=== PATIENT | female | born 1935 | race Caucasian/White ===

== ENCOUNTER → 2016-03-25 | Outpatient (CLI) | payer OTHER ==
[~2016-03-25] MED LIST: ALENDRONATE SOD70 MG PO; AMLODIPINE BESY10 MG PO; ASPIR 8181 MG PO; BENEFIBER1 EAC1 PO; CEFDINIR300 MG PO; CLOBETASOL EMOL15 GM TOP; COMBIVENT RESPIM4 GM IH; COREG3.125 MG PO; ELIDEL CREAM 1%30 G1 TOP; GLIPIZIDE 10 MG10 MG PO; GLUCOTROL5 MG PO; K-DUR 20 MEQ T20 MEQ PO; LASIX 40 MG TAB40 MG PO; LOVASTATIN 20 M20 MG PO; MIRALAX17 GM PO; PREDNISONE 20 M20 MG PO; PROTONIX40 M1 PO; VITAMIN D1000 UNI1 PO; ZESTRIL40 MG PO
[2016-03-25 17:09] LABS: HEMATOCRIT 35.2 % (37.0-47.0); HEMOGLOBIN 11.6 gm/dL (12.0-15.0); MCH 31.1 pg (26.0-34.0); PLATELET COUNT 215 thou/uL (150-400); RBC 3.74 mil/uL (4.20-5.00); WBC 11.7 thou/uL (4.0-11.0)
[2016-03-25 17:28] LABS: MANUAL DIFF YES
[2016-03-25 17:44] LABS: ABSOLUTE NEUTROPHILS 11.3 thou/uL (1.4-8.2); TOTAL CELL COUNT 100
[2016-03-25 17:52] LABS: CREATININE 1.5 mg/dL (0.6-1.3); POTASSIUM 4.7 mmol/L (3.5-5.1)
[2016-03-25 17:53] LABS: ALBUMIN 2.7 g/dL (3.4-5.0); CALCIUM 8.8 mg/dL (8.5-10.1); TOTAL BILIRUBIN 0.6 mg/dL (<0.1-1.0); TOTAL PROTEIN 6.1 g/dL (6.4-8.2)
== END ==
LOC: RAD 15:53
PROVIDERS: Internal Medicine Pulmonary Disease
DX: R06.02 Shortness of breath (principal); R91.8 Other nonspecific abnormal finding of lung field

== ENCOUNTER 2016-06-16 19:47 | Observation (INO) | payer OTHER ==
[~2016-06-16] VITALS: Ht 157.5 cm; Wt 80.6 kg
--- NOTE | ~2016-06-16 | EKG ---
[place] [address] [place] [address] ELECTROCARDIOGRAM REPORT Name: MAGALY BOWIE Room #: 423-1 [facility]..#: [id number] Admission: 06/16/16 Attend Phys: Odette Cheung Discharge: Date of : 34 Report #: [id number] THIS REPORT FOR: //name// [facility] ED Test Date: 2016-06-16 Test Time: 20:39:15 Pat Name: MAGALY BOWIE Department: Room: [facility] Gender: F Director Of Enrollment: [id number] : 1935 Requested By: Migue Perkins Order Number: [id number] MD: Michi Travis Measurements Intervals [place] Rate: 92 P: 51 [place]: 190 QRS: -27 QRSD: 110 T: 132 QT: 368 QTc: 456 Interpretive Statements Sinus rhythm LVH with IVCD and secondary repol abnrm No previous ECG available for comparison Electronically Signed On 06-17-2016 7:58:50 CDT by Michi Travis [email or web address] <ELECTRONICALLY SIGNED> By: Michi Travis MD, [facility] 06/17/16 0758 2038 38 Michi Travis MD, FACC /EPI
[2016-06-16 19:47] VITALS: BP 136/69
[2016-06-16 20:13] LABS: HEMOGLOBIN 10.9 gm/dL (12.0-15.0); MCH 31.6 pg (26.0-34.0); MCHC 34.2 g/dL (28.0-37.0); MCV 92.3 fL (80.0-100.0); PLATELET COUNT 183 thou/uL (150-400); RBC 3.46 mil/uL (4.20-5.00); RDW 14.3 % (10.5-14.5); WBC 11.1 thou/uL (4.0-11.0)
[2016-06-16 20:17] LABS: MANUAL DIFF YES
[2016-06-16 20:24] LABS: CREATININE 1.4 mg/dL (0.6-1.0); POTASSIUM 4.4 mmol/L (3.5-5.1)
[2016-06-16 20:29] LABS: ALBUMIN 3.2 g/dL (3.4-5.0); TOTAL BILIRUBIN 0.6 mg/dL (<0.1-1.0); TOTAL PROTEIN 6.2 g/dL (6.4-8.2)
[2016-06-16 20:41] LABS: ABSOLUTE NEUTROPHILS 10.4 thou/uL (1.4-8.2); ANISOCYTOSIS 2+; METAMYELOCYTES 1 %; MICROCYTES 1+; MYELOCYTES 1 %; TOTAL CELL COUNT 100
[2016-06-16 21:31] LABS: URINE BILIRUBIN NEGATIVE (Negative); URINE BLOOD NEGATIVE (Negative); URINE COLOR YELLOW; URINE GLUCOSE-RANDOM* NEGATIVE (Negative); URINE KETONES NEGATIVE (Negative); URINE LEUKOCYTES-REFLEX TRACE (Negative); URINE PROTEIN (DIPSTICK) NEGATIVE (Negative); URINE UROBILINOGEN 0.2 E.U./dl (0.2-1.0)
[2016-06-16 23:36] VITALS: BP 108/53
[2016-06-17] VITALS: BP 119/56
[2016-06-17 04:00] VITALS: BP 111/55
[2016-06-17 05:31] LABS: HEMATOCRIT 27.3 % (37.0-47.0); HEMOGLOBIN 9.2 gm/dL (12.0-15.0); MCH 31.5 pg (26.0-34.0); MCHC 33.5 g/dL (28.0-37.0); MCV 93.9 fL (80.0-100.0); RBC 2.91 mil/uL (4.20-5.00); RDW 14.2 % (10.5-14.5); WBC 6.7 thou/uL (4.0-11.0)
[2016-06-17 06:08] LABS: ALBUMIN 2.4 g/dL (3.4-5.0); ALKALINE PHOSPHATASE 39 U/L (46-116); ANION GAP 6 mmol/L (7-16); BUN 37 mg/dL (7-18); CALCIUM 7.7 mg/dL (8.5-10.1); CHLORIDE 104 mmol/L (98-107); CO2 29 mmol/L (21-32); CREATININE 1.3 mg/dL (0.6-1.0); GLUCOSE 125 mg/dL (74-106); POTASSIUM 3.8 mmol/L (3.5-5.1); SGOT 18 U/L (15-37); SGPT 22 U/L (30-65); SODIUM 139 mmol/L (136-145); TOTAL BILIRUBIN 0.5 mg/dL (<0.1-1.0); TOTAL PROTEIN 4.9 g/dL (6.4-8.2); TROPONIN-I < 0.04 ng/mL (<0.04-0.07)
[2016-06-17 08:16] VITALS: BP 115/46
[2016-06-17 14:19] VITALS: BP 115/46
== END 2016-06-17 15:49 | disposition home or self-care (01) ==
LOC: ER 19:47 → EROBS 22:32 → 4E 22:32 → EROBS 22:33 → 4E 23:38
PROVIDERS: Emergency Medicine; Nurse Practitioner
DX: R53.1 Weakness (principal); J84.9 Interstitial pulmonary disease, unspecified; J96.11 Chronic respiratory failure with hypoxia; K85.90 Acute pancreatitis without necrosis or infection, unspecified; E11.9 Type 2 diabetes mellitus without complications; I10 Essential (primary) hypertension; E78.5 Hyperlipidemia, unspecified; I82.4Z9 Acute embolism and thrombosis of unspecified deep veins of unspecified distal lower extremity; R06.02 Shortness of breath; R11.2 Nausea with vomiting, unspecified

== ENCOUNTER 2016-06-29 12:35 | Inpatient (IN) | payer OTHER ==
[~2016-06-29] VITALS: Ht 157.5 cm; Wt 76.7 kg
--- NOTE | ~2016-06-29 | H ---
[facility] [place] [address] HISTORY AND PHYSICAL Name: MAGALY BOWIE Room #: 407-P ADM IN .R.#: [id number] Admission: 06/29/16 Attend Phys: Pia Palafox MD Discharge: Date of : 34 Report #: [id number] THIS REPORT FOR: //name// CC: Tonia Palafox DATE OF SERVICE: 06/29/2016 PRIMARY CARE DOCTOR: Pollo Garcia MD CHIEF COMPLAINT: Left hip pain. HISTORY OF PRESENT ILLNESS: The patient is a morbidly obese 80-year-old female with a history of chronic respiratory failure on 2-4 liters of home O2, followed by Dr. Yanez, presented to the ER secondary to left hip and sciatica pain. She was recently here 6 days ago for the same and given prescription for Hartley and sent home. She followed up with ____, an orthopedic surgeon and received a steroid injection today but has had increasing pain. She came in here and received some fentanyl with some relief. She is concerned about going home with a trial stronger oral pain medication. She does not want ____ placement but wants her pain under control before she leaves. The patient was recently hospitalized for gastroenteritis. PAST MEDICAL HISTORY: Chronic respiratory failure, on 2-4 liters of home O2; secondary pulmonary fibrosis, diabetes, cataracts, hypertension and lupus. PAST SURGICAL HISTORY: She has had cataract surgery. SOCIAL HISTORY: Does not smoke or drink. She lives alone with a daughter who lives close by. CURRENT MEDICATIONS: Hartley 5/325, Januvia 100 daily, CellCept 1000 mg b.i.d., prednisone 15 mg daily, Combivent q.i.d., Norvasc 10 daily, aspirin 81 daily, Coreg 3.125 b.i.d., vitamin D 1000 units daily, clobetasol topically, Zestril 40 daily, Mevacor 20 daily, Protonix 40 daily, Elidel cream, and MiraLax 17 grams daily. ALLERGIES: GLUCOSAMINE CHONDROITIN CAUSES SEVERE RASH AND UNABLE TO VOID AND RELAFEN CAUSES THE SAME. REVIEW OF SYSTEMS: The patient was recently hospitalized for GI issues. PHYSICAL EXAMINATION: VITAL SIGNS: Temperature of 97, pulse 78, blood pressure 131/58, and O2 sat 99% [address] [address] HISTORY AND PHYSICAL Name: MAGALY BOWIE Room #: [address] [place] [address] IN .R.#: [id number] Admission: 06/29/16 Attend Phys: Pia Palafox MD Discharge: Date of : 34 Report #: [id number] on 3 liters. GENERAL: She is awake, alert, answering questions appropriately, in no acute respiratory distress. HEENT: Normocephalic, atraumatic. Pupils are equal. NECK: Supple. CARDIOVASCULAR: Regular rate and rhythm. No murmurs. LUNGS: Clear to auscultation bilaterally. No crackles or wheezes. ABDOMEN: Soft and obese. No distention or tenderness. EXTREMITIES: No edema. NEUROLOGIC: Nonfocal. LABS AND TESTING: CBC: White count 11.5, H and H of 9 and 29, MCV 92, iron is 91, TIBC is 237, ____. Sodium 133, potassium 4.2, BUN and creatinine are 39 and 1.2. LFTs are negative. Albumin 3.1. UA is negative. X-ray of the hip done 6 days ago was negative. ASSESSMENT AND PLAN: 1. Intractable left hip pain. We will get ortho to see her, put her on some Percocet and see if that alleviates the pain until her current cortisol injection kicks in. We will get PT to see her as well. 2. Chronic kidney disease stage 3, overall appears to be stable. 3. Chronic anemia. This also is stable. Continue Protonix. Check occult and iron indices. 4. Diabetes. Continue home meds and sliding scale insulin. 5. Chronic respiratory failure secondary to interstitial lung disease. Continue her DuoNebs and her home meds. I do not see any indications to consult Pulmonary at this time, although she is requesting it. 6. Hypertension. Continue the same. 7. Dyslipidemia. Continue the same. 8. Morbid obesity. The patient would benefit from outpatient weight loss. 9. Deep venous thrombosis prophylaxis with SCDs. By: 1534 1737 My Suzan Palafox MD /nt
[~2016-06-29 12:35] MED LIST changes: +HYDROCODONE-APA1 TA1 PO
[2016-06-29 12:40] VITALS: BP 148/52
[2016-06-29] MEDS ORDERED: JANUVIA100 MG PO (12:52)
[2016-06-29] MEDS ORDERED: CELLCEPT500 MG PO (12:52)
[2016-06-29] MEDS ORDERED: NORCO 5-325 TA1 EACH PO (12:53)
[2016-06-29] MEDS ORDERED: BENIFIBER (12:55)
[2016-06-29 13:14] LABS: HEMOGLOBIN 9.9 gm/dL (12.0-15.0); MCH 31.7 pg (26.0-34.0); MCHC 34.3 g/dL (28.0-37.0); MCV 92.3 fL (80.0-100.0); PLATELET COUNT 213 thou/uL (150-400); RBC 3.14 mil/uL (4.20-5.00); WBC 11.5 thou/uL (4.0-11.0)
[2016-06-29 13:16] LABS: MANUAL DIFF YES
[2016-06-29 13:23] LABS: URINE BILIRUBIN NEGATIVE (Negative); URINE BLOOD NEGATIVE (Negative); URINE COLOR YELLOW; URINE GLUCOSE-RANDOM* NEGATIVE (Negative); URINE KETONES NEGATIVE (Negative); URINE NITRITE NEGATIVE (Negative); URINE PROTEIN (DIPSTICK) NEGATIVE (Negative); URINE UROBILINOGEN 0.2 E.U./dl (0.2-1.0)
[2016-06-29 13:25] LABS: CALCIUM 8.8 mg/dL (8.5-10.1); CREATININE 1.2 mg/dL (0.6-1.0); POTASSIUM 4.2 mmol/L (3.5-5.1)
[2016-06-29 13:29] LABS: ALBUMIN 3.1 g/dL (3.4-5.0); TOTAL BILIRUBIN 0.5 mg/dL (<0.1-1.0)
[2016-06-29 13:37] LABS: ABSOLUTE NEUTROPHILS 10.5 thou/uL (1.4-8.2); TOTAL CELL COUNT 100
[2016-06-29 14:30] VITALS: BP 131/58
[2016-06-29 15:16] LABS: % SATURATION 38 % (20-39); IRON 91 ug/dL (50-170); TIBC 237 ug/dL (250-450); UIBC 146 ug/dL
[2016-06-29 19:31] VITALS: BP 117/53
[2016-06-29 23:50] VITALS: BP 114/56
[2016-06-30 03:39] VITALS: BP 133/62
[2016-06-30 05:44] LABS: HEMATOCRIT 29.3 % (37.0-47.0); HEMOGLOBIN 10.2 gm/dL (12.0-15.0); MCH 31.5 pg (26.0-34.0); MCHC 34.7 g/dL (28.0-37.0); PLATELET COUNT 212 thou/uL (150-400); RBC 3.22 mil/uL (4.20-5.00); WBC 8.4 thou/uL (4.0-11.0)
[2016-06-30 05:46] LABS: MANUAL DIFF YES
[2016-06-30 06:02] LABS: CALCIUM 9.1 mg/dL (8.5-10.1); CREATININE 1.2 mg/dL (0.6-1.0); POTASSIUM 4.3 mmol/L (3.5-5.1)
[2016-06-30 07:05] LABS: ABSOLUTE NEUTROPHILS 7.6 thou/uL (1.4-8.2); ANISOCYTOSIS SLIGHT; OVALOCYTES FEW; TOTAL CELL COUNT 100
[2016-06-30 15:40] VITALS: BP 113/49
[2016-06-30 19:55] VITALS: BP 125/54
[2016-07-01 03:52] VITALS: BP 131/59
[2016-07-01 07:36] VITALS: BP 118/58
[2016-07-01 15:43] VITALS: BP 114/56
[2016-07-01 19:40] VITALS: BP 101/54
[2016-07-02 05:40] VITALS: BP 148/70
[2016-07-02] MEDS ORDERED: PERCOCET 7.5-31 EACH PO (08:57)
[2016-07-02 09:20] VITALS: BP 150/50
== END 2016-07-02 13:25 | DRG 552 ==
LOC: ER 12:35 → EROBS 13:47 → 4N 13:47
PROVIDERS: Family Medicine; Nurse Practitioner Family
DX: S32.10XA Unspecified fracture of sacrum, initial encounter for closed fracture (principal); J96.10 Chronic respiratory failure, unspecified whether with hypoxia or hypercapnia; E87.1 Hypo-osmolality and hyponatremia; M54.16 Radiculopathy, lumbar region; J84.10 Pulmonary fibrosis, unspecified; L93.0 Discoid lupus erythematosus; E11.22 Type 2 diabetes mellitus with diabetic chronic kidney disease; I12.9 Hypertensive chronic kidney disease with stage 1 through stage 4 chronic kidney disease, or unspecified chronic kidney disease; N18.3 Chronic kidney disease, stage 3 (moderate); E66.01 Morbid (severe) obesity due to excess calories; E78.5 Hyperlipidemia, unspecified; D64.9 Anemia, unspecified; Z88.8 Allergy status to other drugs, medicaments and biological substances; Z68.30 Body mass index [BMI] 30.0-30.9, adult; Z98.41 Cataract extraction status, right eye; Z98.42 Cataract extraction status, left eye; Z99.81 Dependence on supplemental oxygen
CPT/HCPCS: 10091

== ENCOUNTER 2016-08-17 01:05 | Emergency (ER) | payer OTHER ==
[~2016-08-17] VITALS: Ht 157.5 cm; Wt 76.7 kg
[~2016-08-17 01:05] MED LIST changes: +BENIFIBER; +CELLCEPT500 MG PO; +JANUVIA100 MG PO; +NORCO 5-325 TA1 EACH PO; +PERCOCET 7.5-31 EACH PO
[2016-08-17 01:44] LABS: HEMATOCRIT 31.9 % (37.0-47.0); HEMOGLOBIN 10.7 gm/dL (12.0-15.0); MCH 30.5 pg (26.0-34.0); MCHC 33.5 g/dL (28.0-37.0); MCV 91.1 fL (80.0-100.0); PLATELET COUNT 186 thou/uL (150-400); RDW 13.4 % (10.5-14.5); WBC 12.7 thou/uL (4.0-11.0)
[2016-08-17 01:45] LABS: MANUAL DIFF YES
[2016-08-17 01:50] LABS: CALCIUM 8.1 mg/dL (8.5-10.1); POTASSIUM 3.3 mmol/L (3.5-5.1)
[2016-08-17 02:27] LABS: ABSOLUTE NEUTROPHILS 12.6 thou/uL (1.4-8.2); TOTAL CELL COUNT 100
[2016-08-17] MEDS ORDERED: COLACE100 MG PO (02:44)
[2016-08-17] MEDS ORDERED: LASIX 40 MG TAB40 M2 PO (02:45)
[2016-08-17] MEDS ORDERED: JANUVIA100 MG PO (02:46)
== END 2016-08-17 03:06 ==
LOC: ER 01:05
PROVIDERS: Emergency Medicine
DX: E11.649 Type 2 diabetes mellitus with hypoglycemia without coma (principal); R19.7 Diarrhea, unspecified; I12.9 Hypertensive chronic kidney disease with stage 1 through stage 4 chronic kidney disease, or unspecified chronic kidney disease; E11.22 Type 2 diabetes mellitus with diabetic chronic kidney disease; N18.3 Chronic kidney disease, stage 3 (moderate); E11.40 Type 2 diabetes mellitus with diabetic neuropathy, unspecified; K64.9 Unspecified hemorrhoids; E78.5 Hyperlipidemia, unspecified; Z86.2 Personal history of diseases of the blood and blood-forming organs and certain disorders involving the immune mechanism; Z88.8 Allergy status to other drugs, medicaments and biological substances; Z99.81 Dependence on supplemental oxygen

== ENCOUNTER 2016-08-18 10:28 | Inpatient (IN) | payer OTHER ==
[~2016-08-18] VITALS: Ht 157.5 cm; Wt 73.6 kg
--- NOTE | ~2016-08-18 | S ---
[facility] [place] [address] SURGICAL PATH RPT PROCEDURE Name: MAGALY BOWIE Room #: 443-P ADM IN M.R.#: [id number] Admission: 08/18/16 Date of : 34 Discharge: Report #: [id number] Path Case #: [id number] PATHOLOGY REPORT COLLECTION DATE: 08/25/2016 RECEIVED DATE: 08/25/2016 SUBMITTING PHYS: Dr. Ming Monsivais OTHER PHYS: Dr. Jerry Upton SPECIMEN(S) RECEIVED: A.Gallbladder * * * * * * * * * * * * FINAL DIAGNOSIS: "Gallbladder", cholecystectomy: - Chronic cholecystitis. - Cholelithiasis. (CLW:valentine; d/t: 08/27/2016) PATHOLOGIST: Charmaine Pierson M.D. REPORT ELECTRONICALLY SIGNED BY: Charmaine Pierson M.D. DATE/TIME: 08/27/2016 16:04 * * * * * * * * * * * * GROSS PATHOLOGY: Received in formalin labeled "Magaly Bowie, gallbladder," is a 4.9 x 2.8 x 1.6 cm, previously opened gallbladder with yellow-green and wrinkled serosal surfaces. Opening the gallbladder reveals green and velvety mucosa and an average wall thickness of 0.1 cm. Calculi are present, dark green, friable and ranging in size from 0.1 to 0.5 cm in maximum dimensions. No masses are noted grossly. Stock Checkerer sections from the body and fundus are submitted along with the proximal margin in cassette A1. (MARCY; 08/26/2016) CLINICAL HISTORY: Cholelithiasis with biliary pancreatitis INITIAL CPT CODE(S): A; 50911 Professional services performed by [facility] at [facility] [address] , [place], [place] [address] [place] [address] [place] [address] SURGICAL PATH RPT PROCEDURE Name: MAGALY BOWIE Room #: 443-P [facility] IN [facility].#: [id number] Admission: 08/18/16 Date of : 34 Discharge: Report #: [id number] Path Case #: [id number] Technical services performed by [facility] at [address] [place] [address], [facility] [address] [address]. [place] [address] PHONE: [phone] DIRECTOR: Heriberto Hernandez M.D. * * * END OF REPORT * * *
--- NOTE | ~2016-08-18 | HC ---
[facility] [place] [address] CONSULTATION Name: MAGALY BOWIE Room #: 246-P [facility] IN ..#: [id number] Admission: 08/18/16 Attend Phys: Jerry Mcdowell MD Discharge: Date of : 34 Report #: [id number] THIS REPORT FOR: //name// CC: Jerry Walker DATE OF SERVICE: 08/23/2016 DATE OF CONSULTATION: 08/23/2016. DATE OF DICTATION: 08/25/2016. HISTORY OF PRESENT ILLNESS: I have been asked to evaluate this 80-year-old lady with severe chronic lung disease, who presented to the Emergency Department with a chief complaint of abdominal pain. The patient's abdominal pain has been intermittent at most in her upper abdomen. She has some constipation ongoing manner, she has been recently hospitalized at [facility] in [place], [place] since June for recovery from pneumonitis and pneumonia. The patient denies any previous gastrointestinal disease. The pain has been associated with nausea with abdominal pain, distention has been ongoing for approximately 1 week. PAST MEDICAL HISTORY: Consistent with msg-przjhho-yzxrfcgyt diabetes mellitus, pulmonary fibrosis, hypertension, lupus pneumonitis, chronic O2 use at home 2-4 liters per nasal cannula, chronic kidney disease, dyslipidemia, anemia, neuropathy, and cortisone injection, congestive heart failure. PAST SURGICAL HISTORY: Cataract surgery, hemorrhoidectomy. She denies abdominal surgery. MEDICATIONS: At the time of hospital patient were Percocet, glipizide, albuterol, prednisone 15 mg daily, Colace, Lasix 40 mg daily, Januvia, 81 mg aspirin daily, Coreg daily, cholecalciferol, clobetasol , lisinopril, Mevacor, Protonix and MiraLax. ALLERGIES: CHONDROITIN, SULFATE, GLUCOSAMINE, RELAFEN. SOCIAL HISTORY: Denies cigarette smoking and no history of alcohol use. REVIEW OF SYSTEMS: A 10-review of systems, recent change has been in gastrointestinal function with abdominal pain, nausea without vomiting and worsening constipation and obstipation. PHYSICAL EXAMINATION: GENERAL: Reveals a patient who is daughters are at the bedside. She is alert, cooperative and nasal cannula in place for O2 delivery. [address] [address] CONSULTATION Name: MAGALY BOWIE Room #: 246-P [facility] IN M.R.#: [id number] Admission: 08/18/16 Attend Phys: Jerry Mcdowell MD Discharge: Date of : 34 Report #: [id number] HEENT: No scleral icterus is noted. NECK: Supple, no bruits. LUNGS: Clear at the bases bilaterally. CARDIOVASCULAR: Regular rate and rhythm. ABDOMEN: Nondistended, obese, mild tenderness in right upper quadrant. No masses palpable. RECTAL: Not performed. NEUROLOGIC: She is oriented x 3, bilateral motor symmetry. LABORATORY DATA: Demonstrates an ultrasound with cholelithiasis. Lipase level and now has returned to normal. Other liver function tests are within normal limits. DIAGNOSTIC IMPRESSION: Biliary pancreatitis secondary to cholelithiasis. I would recommend laparoscopic cholecystectomy and operative cholangiogram if Pulmonary and Cardiology services can clear the patient preoperatively for anesthesia. Thank you for allowing us to participate in her care. <ELECTRONICALLY SIGNED> By: Ming Monsivais MD, FACS 08/25/16 1800 1239 1301 Ming Monsivais MD, FACS /nt
--- NOTE | ~2016-08-18 | HC ---
[facility] [place] [address] CONSULTATION Name: MAGALY BOWIE Room #: 443-P [facility].#: [id number] Admission: 08/18/16 Attend Phys: Jerry Mcdowell MD Discharge: 08/27/16 Date of : 34 Report #: [id number] THIS REPORT FOR: //name// CC: Jerry [facility]zh [facility] DATE OF SERVICE: 08/26/2016 HISTORY OF PRESENT ILLNESS: The patient is an 80-year-old white female who has been on skilled damico at [facility], was admitted with abdominal pain. She was diagnosed with cholecystitis with cholelithiasis and underwent a laparoscopic cholecystectomy on 08/25/2016. She also was diagnosed with a urinary tract infection, Proteus as well as chronic respiratory failure, for which she is on chronic O2. We are seeing her in rehabilitation medicine consultation. She is currently in the intensive care unit. PAST MEDICAL HISTORY: Includes neuropathy, jyh-qiuhhls-qwqkuraxr diabetes mellitus, pulmonary fibrosis with chronic O2 use 2-4 liters and obesity. She has history of chronic kidney disease stage 3 and CHF. MEDICATIONS: Please see the full medication listing. SOCIAL HISTORY: She notes that she lives in a house by herself, was on her oxygen. She is wanting to go back home, but had been at the shelter facility. DICTATION ENDS HERE. <ELECTRONICALLY SIGNED> By: Sanjeev Barboza MD 08/31/16 1825 1340 1432 Sanjeev Barboza, /nt
--- NOTE | ~2016-08-18 | EKG ---
[address] [place] [address] ELECTROCARDIOGRAM REPORT Name: MAGALY BOWIE Room #: 447-P ADM IN M.R.#: [id number] Admission: 08/18/16 Attend Phys: Odette Cheung Discharge: Date of : 34 Report #: [id number] THIS REPORT FOR: //name// [facility] ED Test Date: 2016-08-18 Test Time: 11:18:36 Pat Name: MAGALY BOWIE Department: Room: [facility] Gender: F Porcelain Waxer: LOAN : 1935 Requested By: Jus Early Order Number: [id number] MD: Michi Travis Measurements Intervals [place] Rate: 97 P: 25 ID: [id number] QRS: -32 QRSD: 98 T: 111 QT: 357 QTc: 454 Interpretive Statements Sinus rhythm Atrial premature complex Probable left atrial enlargement Abnormal R-wave progression, late transition LVH with secondary repolarization abnormality Compared to ECG 06/16/2016 20:39:15 Atrial premature complex(es) now present Electronically Signed On 08-19-2016 8:48:20 CDT by Michi Travis [email or web address] <ELECTRONICALLY SIGNED> By: Michi Travis MD, [facility] 08/19/16 0848 1118 1118 Michi Travis MD, [facility] /EPI
--- NOTE | ~2016-08-18 | HC ---
[facility] [place] [address] CONSULTATION Name: MAGALY BOWIE Room #: 443-P [facility].#: [id number] Admission: 08/18/16 Attend Phys: Jerry Mcdowell MD Discharge: 08/27/16 Date of : 34 Report #: [id number] THIS REPORT FOR: //name// CC: Won Walker PULMONARY CONSULTATION REFERRAL PHYSICIAN: Odette Cheung M.D. REASON FOR REFERRAL: Pulmonary fibrosis, preoperative pulmonary evaluation. HISTORY OF PRESENT ILLNESS: The patient is an 80-year-old white female who was admitted with abdominal pain. She was found to have biliary pancreatitis. She is scheduled to undergo surgery tomorrow. A pulmonary consultation is requested. The patient has history of interstitial lung disease and history of pulmonary fibrosis. She has been followed longitudinally by Dr. Yanez. The cause of the interstitial lung disease is unclear to this physician at this time. Review of the past records from 2015 suggests possible nonspecific interstitial pneumonitis or other interstitial pneumonias. Currently, she denies any dyspnea. Denies any productive cough, night sweats or chills. PAST MEDICAL HISTORY: Notable for diabetes mellitus type 2; interstitial lung disease/pulmonary fibrosis, etiology unknown, as mentioned above; hypertension; history of lupus with an apparent lupus pneumonitis; chronic hypoxic respiratory failure, on 2-4 liters of O2; chronic kidney disease; dyslipidemia; anemia; neuropathy; COPD and sacral stress fracture. PAST SURGICAL HISTORY: Includes cataract surgery. ALLERGIES: CHONDROITIN which causes severe rash, GLUCOSAMINE and RELAFEN causes severe rash. MEDICATIONS: Current medication list reviewed in the MAR. FAMILY HISTORY: Noncontributory. SOCIAL HISTORY: She denies any tobacco or alcohol use. She resides in a fci. REVIEW OF SYSTEMS: As mentioned above, otherwise 10-point system review negative. [facility] [address] [place] [address] CONSULTATION Name: MAGALY BOWIE Room #: 443-P [facility] IN [facility]#: [id number] Admission: 08/18/16 Attend Phys: Jerry Mcdowell MD Discharge: 08/27/16 Date of : 34 Report #: [id number] PHYSICAL EXAMINATION: GENERAL: On examination, she is awake, alert, in no apparent distress. VITAL SIGNS: Temperature is 98 degrees Fahrenheit, pulse is 100, respiratory rate is 20, blood pressure is 148/72 mmHg and saturation 100%. HEENT: Normocephalic, atraumatic. NECK: Supple, without any lymphadenopathy or thyromegaly. CHEST: Breath sounds are fair, with few scattered crackles in the bases. No wheezes. ABDOMEN: Mildly tender, but without rebound tenderness. No masses felt. GENITOURINARY: Deferred. RECTAL: Deferred. EXTREMITIES: No cyanosis, clubbing or edema. LABORATORY DATA: Sodium 133, potassium 3.7, chloride 99, CO2 of 27, BUN is 4 and creatinine is 1.0. Liver function test is grossly unremarkable. Hemoglobin is 10.4, WBC is 10,300 and platelets are normal. Albumin is 2.3. IMPRESSION: 1. Gallstone pancreatitis, surgery is scheduled for tomorrow. 2. History of interstitial lung disease, pulmonary fibrosis, etiology undetermined. 3. Chronic hypoxic respiratory failure, on supplemental O2. 4. Urinary tract infection. 5. Hypertension. 6. Diabetes mellitus type 2. RECOMMENDATION AND DISCUSSION: The patient appears to be stable from pulmonary standpoint to proceed with surgery. She has avlv-ad-idifktam risk of postop hypoxia and respiratory complications. I think it is reasonable to proceed with anticipated surgery. DVT and GI prophylaxis recommended. Thank you for this consultation. <ELECTRONICALLY SIGNED> By: James Leiva MD 08/28/16 1600 1707 0017 James Leiva MD /nt
--- NOTE | ~2016-08-18 | EKG ---
[address] [place] [employer] [place] [address] ELECTROCARDIOGRAM REPORT Name: MAGALY BOWIE Consuelo Room #: 447-P ADM IN M.R.#: [id number] Admission: 08/18/16 Attend Phys: Won Cuevas MD Discharge: Date of : 34 Report #: [id number] THIS REPORT FOR: //name// [facility] Test Date: 2016-08-24 Test Time: 12:47:52 Pat Name: MAGALY BOWIE Department: Room: 447 P Gender: F Qa Software Tester: Abdifatah LOERA : 1935 Requested By: Yvonne Harris Order Number: [id number] MD: Jose Schofield Measurements Intervals [place] Rate: 92 P: 42 FL: 175 QRS: -33 QRSD: 99 T: 115 QT: 368 QTc: 456 Interpretive Statements Sinus rhythm Atrial premature complex Abnormal R-wave progression, late transition LVH with secondary repolarization abnormality Compared to ECG 08/18/2016 11:18:36 No significant changes Electronically Signed On 08-24-2016 13:00:32 CDT by Jose Schofield [email or web address] <ELECTRONICALLY SIGNED> By: Jose Schofield MD 08/24/16 1300 1247 124 Jose Schofield MD /EPI
--- NOTE | ~2016-08-18 | S ---
[facility] [place] [address] SURGICAL PATH RPT PROCEDURE Name: MAGALY BOWIE Room #: 246-P ADM IN M.R.#: [id number] Admission: 08/18/16 Date of : 34 Discharge: Report #: [id number] Path Case #: [id number] PATHOLOGY REPORT COLLECTION DATE: 08/24/2016 RECEIVED DATE: 08/25/2016 SUBMITTING PHYS: Dr. Esau Guo OTHER PHYS: Dr. Mason Walker SPECIMEN(S) RECEIVED: A.Bx of duodenum B.Bx of gastritis C.Bx of random colon * * * * * * * * * * * * FINAL DIAGNOSIS: A. Small bowel mucosa, "duodenum", endoscopic biopsy: - Mild active peptic duodenitis. - Negative for villus blunting or increase in intraepithelial lymphocytes. B. Gastric mucosa, "gastritis", endoscopic biopsy: - Mild active gastritis. - No evidence of intestinal metaplasia or atrophy. - No Helicobacter pylori identified, see comment. C. Large intestine mucosa, "random colon", endoscopic biopsy: - Mild focal active colitis, see comment. - No evidence of dysplasia or malignancy. COMMENT: Part B: Helicobacter pylori immunohistochemical stain performed on block B1- negative An intensive search for Helicobacter pylori-like organisms is negative. Absence of such organisms does not entirely exclude the possibility and may be due to sampling or prior treatment. Other possible etiologies may include chemical gastritis, autoimmune gastritis, gastritis associated with inflammatory bowel disease. Please correlate with clinical, endoscopic, and microbiological studies if clinically indicated. Part C: Sections of colon biopsy tissues show focal active cryptitis, crypts at regular intervals with a mild increase in the cellularity of lamina propria. There are no granulomata or viral inclusions. The collagen layer underneath the epithelium is not thickened. There is no increase in the intraepithelial lymphocytes. There is no distortion in crypt architecture as well. There is no evidence of dysplasia. Findings may be suggestive of mild focal active colitis due to a self-limited episode of colitis, bowel preparation, [address] [address] SURGICAL PATH RPT PROCEDURE Name: MAGALY BOWIE Consuelo Room #: 246-P [facility] IN [facility]#: [id number] Admission: 08/18/16 Date of : 34 Discharge: Report #: [id number] Path Case #: [id number] medication induced colitis or diverticulitis. Please correlate clinically. PATHOLOGIST: Berenice Ray M.D. REPORT ELECTRONICALLY SIGNED BY: Berenice Ray M.D. DATE/TIME: 08/26/2016 15:45 * * * * * * * * * * * * GROSS PATHOLOGY: A. Received in formalin labeled "Magaly Bowie, biopsy of duodenum," are three segments of orellana soft tissue measuring 0.8 x 0.7 x 0.1 cm in aggregate dimensions and ranging from 0.1 to 0.4 cm in maximum dimension. The specimen is submitted entirely in cassette A1. B. Received in formalin labeled "Magaly Bowie, biopsy of gastritis," are three segments of orellana soft tissue measuring 1.0 x 0.8 x 0.2 cm in aggregate dimensions and ranging from 0.2 to 0.5 cm in maximum dimension. The specimen is submitted entirely in cassette B1. C. Received in formalin labeled "Magaly Bowie, biopsy random colon," are two segments of orellana soft tissue measuring 0.5 x 0.5 x 0.1 cm in aggregate dimensions and ranging from 0.4 to 0.5 cm in maximum dimension. The specimen is submitted entirely in cassette C1. (CAA; 08/25/2016) CLINICAL HISTORY: Pre-op diagnosis: History of diarrhea, heme + stool, anemia Post-op diagnosis: Gastritis, diverticulosis INITIAL CPT CODE(S): A; 19484 B; 67385, 89566 C; 70039 Professional services performed by [facility] at [place] [address] [address], [place] [address] Technical services performed by [facility] at [address] [place] [address], [address], [place] [address]. [facility] [place] [address] PHONE: [phone] DIRECTOR: Heriberto Hernandez M.D. * * * END OF REPORT * * *
--- NOTE | ~2016-08-18 | P ---
[facility] [place] [address] PROCEDURE REPORT Name: MAGALY BOWIE Room #: 443-P [facility] IN ..#: [id number] Admission: 08/18/16 Attend Phys: Jerry Mcdowell MD Discharge: Date of : 34 Report #: [id number] THIS REPORT FOR: //name// CC: Ming Walker DATE OF SERVICE: 08/24/2016 PROCEDURE PERFORMED: Colonoscopy with biopsies. HISTORY OF PRESENT ILLNESS: The patient is an 80-year-old female with recent diarrhea, nausea, Hemoccult positive stool, anemia, and plan is for colonoscopy. DESCRIPTION OF PROCEDURE: The risks and benefits of the procedure were explained to the patient, those risks including but not limited to bleeding, perforation, the risk of sedation. She understood these risks and gave informed consent. Sedation was given using propofol per anesthesia. Next, a digital rectal exam was initially performed, which is normal other than small external hemorrhoids, nonbleeding. Next, using a standard Fujinon colonoscope, the scope was placed in the patient's anus and advanced under direct vision to the cecum. The overall prep was good. Cecum and ileocecal valve were normal in appearance. A few scattered diverticula were noted in the ascending colon, no evidence of inflammation, otherwise normal. Transverse and descending colon were normal. Multiple diverticula were noted in the sigmoid colon, no evidence of inflammation, otherwise normal. The rectal mucosa was normal. On retroflexion, small nonbleeding internal hemorrhoids were noted, otherwise normal colonoscopy. The scope was then withdrawn and the procedure terminated. The patient tolerated the procedure well. Random biopsies were obtained to rule out microscopic colitis. IMPRESSION: 1. Diverticulosis, mild involving the ascending colon, multiple involving sigmoid colon, no evidence of inflammation. 2. Internal and external hemorrhoids, nonbleeding. 3. Otherwise, normal colonoscopy. RECOMMENDATIONS: 1. Await biopsy results. 2. Continue probiotics. 3. Plan is for laparoscopic cholecystectomy tomorrow. [address] [address] PROCEDURE REPORT Name: AZEBMAGALY L Room #: 443-P [facility] IN ..#: [id number] Admission: 08/18/16 Attend Phys: Jerry Mcdowell MD Discharge: Date of : 34 Report #: [id number] Thank you for allowing me to participate in her care. <ELECTRONICALLY SIGNED> By: Esau Guo MD 08/27/16 0818 1421 1904 Esau Guo MD /nt
--- NOTE | ~2016-08-18 | P ---
[facility] [place] [address] PROCEDURE REPORT Name: MAGALY BOWIE Room #: 443-P [facility] IN ..#: [id number] Admission: 08/18/16 Attend Phys: Jerry Mcdowell MD Discharge: Date of : 34 Report #: [id number] THIS REPORT FOR: //name// CC: Ming Walker DATE OF SERVICE: 08/24/2016 PROCEDURE PERFORMED: Upper endoscopy with biopsies. HISTORY OF PRESENT ILLNESS: The patient is an 80-year-old female who is admitted with diarrhea, poor appetite and nausea. She also was noted to be anemic and Hemoccult positive. Last colonoscopy was approximately 10 years ago. No family history of colon cancer. She had been taking aspirin as well as Protonix, CellCept and prednisone. Plan is for EGD and colonoscopy today. A CT scan of the abdomen and pelvis was obtained on admission on 08/18/2016 showed nonspecific gastroenteritis. She also had a significant elevation of her lipase consistent with pancreatitis and she underwent an ultrasound showing cholelithiasis. Plan is for EGD and colonoscopy today and laparoscopic cholecystectomy tomorrow. DESCRIPTION OF PROCEDURE: The risks and benefits of the procedure were explained to the patient, those risks including, but not limited to bleeding, perforation, the risk of sedation. She understood these risks and gave informed consent. Sedation was given using propofol per anesthesia. Next, using a standard Ceannateinon upper endoscope, the scope was placed in the patient's mouth and advanced under direct vision through the esophagus, stomach and into the second portion of the duodenum. The esophagus was normal throughout. The GE junction was normal. Overall, the gastric mucosa was normal. In the fundus and body, there was a mild gastritis in the gastric antrum. Biopsies were obtained to rule out H. pylori. The pylorus was normal and patent. The duodenal bulb, first and second portion were all normal. Biopsies were obtained to rule out the possibility of celiac sprue. The scope was then withdrawn and the procedure terminated. The patient tolerated the procedure well. IMPRESSION: 1. Mild gastritis. 2. Otherwise, normal upper endoscopy. RECOMMENDATIONS: 1. Await biopsy results. 2. Continue Pepcid. 3. We will proceed with colonoscopy today. [address] [address] PROCEDURE REPORT Name: MAGALY BOWIE Consuelo Room #: 443-P [facility] IN ..#: [id number] Admission: 08/18/16 Attend Phys: Jerry Mcdowell MD Discharge: Date of : 34 Report #: [id number] Thank you for allowing me to participate in her care. <ELECTRONICALLY SIGNED> By: Esau Guo MD 08/27/16 0818 1419 51 Esau Guo MD /nt
--- NOTE | ~2016-08-18 | 2DMMODE ---
[facility] [address] [facility] [place] [address] 2 D/M-MODE ECHOCARDIOGRAM Name: MAGALY BOWIE Room #: 447-P [facility] IN ..#: [id number] Admission: 08/18/16 Attend Phys: Kiah Barrios Discharge: Date of : 34 Date of Service: 08/24/16 1715 Report #: [id number] THIS REPORT FOR: //name// APPROVED REPORT Study performed: 08/24/2016 14:56:10 EXAM: Comprehensive 2D, Doppler, and color-flow Echocardiogram Patient Location: Bedside Room #: [facility] Status: routine Other Information Study Quality: Adequate Indications Pre-Op Congestive Heart Failure 2D Dimensions RVDd: 34.09 mm LVEF(%): 42.20 (>50%) IVSd: 11.29 (7-11mm) LVOT Diam: 20.07 (18-24mm) LVDd: 42.08 mm PWd: 9.18 (7-11mm) Ascending Ao: 34.96 (22-36mm) LVDs: 33.46 (25-40mm) Aortic Root: 33.56 mm Olivo's LVEF: 42.20 % Volumes Left Atrial Volume (Systole) Single Plane 4CH: 51.01 mL Single Plane 2CH: 47.64 mL LA ESV Index: 32.00 mL/m2 Aortic Valve AoV Peak Armin.: 1.21 m/s AO Peak Gr.: 5.92 mmHg LVOT Max P.28 mmHg LVOT Max V: 1.03 m/s RORO Vmax: 2.71 cm2 Mitral Valve E/A Ratio: 0.7 MV Decel. Time: 190.31 ms MV E Max Armin.: 1.06 m/s MV A Armin.: 1.50 m/s MV PHT: 55.19 ms [facility] [place] [address] 2 D/M-MODE ECHOCARDIOGRAM Name: AZEBMAGALY L Room #: 447-P [facility] IN ..#: [id number] Admission: 08/18/16 Attend Phys: Kiah Barrios Discharge: Date of : 34 Date of Service: 08/24/16 1715 Report #: [id number] Pulmonary Valve PV Peak Armin.: 1.07 m/s PV Peak Gr.: 4.56 mmHg Tricuspid Valve TR Peak Armin.: 2.73 m/s RAP Estimate: 5.00 mmHg TR Peak Gr.: 30.04 mmHg PA Pressure: 35.00 mmHg Left Ventricle The left ventricle is normal size. There is normal left ventricular wall thickness. Left ventricular systolic function is normal. LVEF is 50-55%. Mild diastolic dysfunction is present (impaired relaxation pattern). Right Ventricle The right ventricle is normal size. The right ventricular systolic function is normal. Atria The left atrium size is normal. The right atrium size is normal. Aortic Valve Aortic valve is mildly calcified. Trace to mild aortic regurgitation. There is no aortic valvular stenosis. Mitral Valve The mitral valve is normal in structure. Moderate mitral annular calcification. Mild mitral regurgitation. Tricuspid Valve The tricuspid valve is normal in structure. There is mild tricuspid regurgitation. The right atrial pressure is estimated at 5 mmHg. There is mild pulmonary hypertension with an estimated PAP of 35mmHg. Pulmonic Valve The pulmonary valve is normal in structure. Mild pulmonic regurgitation. Great Vessels The aortic root is normal in size. The ascending aorta is normal in size. IVC is normal in size and collapses >50% with inspiration. [facility] [address] [place] [address] 2 D/M-MODE ECHOCARDIOGRAM Name: MAGALY BOWIE Room #: 447-P [facility] IN [facility].#: [id number] Admission: 08/18/16 Attend Phys: Kiah Barrios Discharge: Date of : 34 Date of Service: 08/24/16 1715 Report #: [id number] Pericardium There is no pericardial effusion. <Conclusion> The left ventricle is normal size. LVEF is 50-55%. Aortic valve is mildly calcified. Trace to mild aortic regurgitation. There is no aortic valvular stenosis. The mitral valve is normal in structure. Moderate mitral annular calcification. Mild mitral regurgitation. The tricuspid valve is normal in structure. There is mild tricuspid regurgitation. The right atrial pressure is estimated at 5 mmHg. There is mild pulmonary hypertension with an estimated PAP of 35mmHg. The pulmonary valve is normal in structure. Mild pulmonic regurgitation. <ELECTRONICALLY SIGNED> By: Willard Loo MD 08/24/161714 14 14 Willard Loo MD /INF
--- NOTE | ~2016-08-18 | O ---
[facility] [place] [place] [address] OPERATIVE REPORT Name: MAGALY BOWIE Room #: 246-P [facility] IN ..#: [id number] Admission: 08/18/16 Attend Phys: Jerry Mcdowell MD Discharge: Date of : 34 Report #: [id number] THIS REPORT FOR: //name// CC: Jerry Walker DATE OF SERVICE: 08/25/2016 DATE OF OPERATION: 08/25/2016 PREOPERATIVE DIAGNOSES: Cholecystitis, cholelithiasis and biliary pancreatitis. POSTOPERATIVE DIAGNOSES: Cholecystitis, cholelithiasis and biliary pancreatitis. OPERATIVE PROCEDURE: Laparoscopic cholecystectomy with operative cholangiogram. SURGEON: Ming Monsivais M.D. MENTAL HEALTH PROGRAM SPECIALIST: Unruly Marie M.D. INDICATIONS: An 80-year-old lady, who presented with abdominal pain, nausea and vomiting, biliary pancreatitis, which has now resolved and an ultrasound demonstrating cholelithiasis. The patient has severe pulmonary disease secondary to her lupus. She has also had Pulmonary and Cardiology clearance prior to operation. OPERATIVE PROCEDURE: The patient had thorough discussion of procedure, benefits and risks. She gave informed consent to proceed. She was brought to the operating room suite and had satisfactory induction of general endotracheal anesthesia. The patient's entire abdomen was prepped and draped in usual sterile procedure with DuraPrep solution. After draping was completed, an appropriate timeout was then performed. Preoperative IV antibiotics, Mefoxin 2 grams were given. Naropin 0.5% was used at all trocar sites. Initially, an injection was performed to the infraumbilical position. Open cutdown to the infraumbilical fascia was performed. Fingertip introduction was performed. #12 mm Dayna trocar was introduced. The balloon was inflated. Pneumoperitoneum was established. An upper 5 mm midline trocar was placed under direct vision. Two lateral 5 mm trocar ports were then placed under direct vision. The gallbladder was grasped, retracted cephalad and laterally. Photographs were taken and made part of the medical record. The cystic duct triangle was clearly delineated. The cystic duct was milked in a retrograde manner. A clip was placed toward the gallbladder. A cystotomy was performed and the taut catheter was introduced. An intraoperative cholangiogram demonstrated free flow of contrast into the duodenum. The proximal hepatic bifurcation was well visualized and unremarkable. The taut catheter was removed. The cystic duct [address] [address] OPERATIVE REPORT Name: AZEBMAGALY L Room #: 246-P [facility] IN [facility]#: [id number] Admission: 08/18/16 Attend Phys: Jerry Mcdowell MD Discharge: Date of : 34 Report #: [id number] was triply ligated and then divided with Sonicision. The cystic artery was identified, ligated and divided with the Sonicision. The gallbladder was resected from the hepatic and gallbladder fossa with the Sonicision. Hemostasis was then achieved with the electrocautery ____. The gallbladder was removed from the peritoneal cavity, opened on a back table revealing small gravely bilirubin stones and cholesterolosis of the mucosa. Attention was turned back to the peritoneal cavity. Hemostasis of the gallbladder bed was complete. Photographs were taken of the dry bed. Tony was sprayed into the bed. All trocars were then removed under direct vision. Previously an 0 PDS fonifr-cu-nsinw suture had been place at the infraumbilical port site. After the pneumoperitoneum was evacuated, the 0 PDS suture was ligated in place. Skin margins approximated with subcuticular 4-0 Monocryl. Dermabond was applied. Estimated blood loss was less than 10 mL. The patient returned to recovery room in stable and satisfactory condition. <ELECTRONICALLY SIGNED> By: Ming Monsivais MD, FACS 08/25/16 1800 1231 1346 Ming Monsivais MD, FACS /nt
[~2016-08-18 10:28] MED LIST changes: +COLACE100 MG PO; +LASIX 40 MG TAB40 M2 PO
[2016-08-18 10:30] VITALS: BP 156/64
[2016-08-18 10:48] LABS: HEMATOCRIT 35.1 % (37.0-47.0); HEMOGLOBIN 11.6 gm/dL (12.0-15.0); MCH 30.7 pg (26.0-34.0); MCHC 33.2 g/dL (28.0-37.0); MCV 92.4 fL (80.0-100.0); PLATELET COUNT 228 thou/uL (150-400); RBC 3.79 mil/uL (4.20-5.00); RDW 13.6 % (10.5-14.5); WBC 15.4 thou/uL (4.0-11.0)
[2016-08-18 10:49] LABS: MANUAL DIFF YES
[2016-08-18 11:00] LABS: ANION GAP 7 mmol/L (7-16); BUN 8 mg/dL (7-18); CALCIUM 8.5 mg/dL (8.5-10.1); CHLORIDE 94 mmol/L (98-107); CO2 30 mmol/L (21-32); CREATININE 0.8 mg/dL (0.6-1.0); GLUCOSE 100 mg/dL (74-106); POTASSIUM 4.2 mmol/L (3.5-5.1); SODIUM 131 mmol/L (136-145)
[2016-08-18 11:07] LABS: ALBUMIN 2.6 g/dL (3.4-5.0); ALKALINE PHOSPHATASE 50 U/L (46-116); SGOT 20 U/L (15-37); SGPT 15 U/L (30-65); TOTAL BILIRUBIN 0.5 mg/dL (<0.1-1.0); TOTAL PROTEIN 5.1 g/dL (6.4-8.2); TROPONIN-I < 0.04 ng/mL (<0.04-0.07)
[2016-08-18 11:19] LABS: ABSOLUTE NEUTROPHILS 13.2 thou/uL (1.4-8.2); ANISOCYTOSIS SLIGHT; TOTAL CELL COUNT 100
[2016-08-18 13:33] VITALS: BP 142/67
[2016-08-18 14:00] LABS: CHOLESTEROL 114 mg/dL (<200); HDL CHOLESTEROL 58 mg/dL (>40); LDL CHOLESTEROL 37 mg/dL (<100); TRIGLYCERIDE 96 mg/dL (<150); VLDL 19 mg/dL (<40)
[2016-08-18 15:00] VITALS: BP 142/60
[2016-08-18 20:59] VITALS: BP 131/47
[2016-08-18 22:56] LABS: URINE BILIRUBIN NEGATIVE (Negative); URINE BLOOD NEGATIVE (Negative); URINE COLOR YELLOW; URINE GLUCOSE-RANDOM* NEGATIVE (Negative); URINE KETONES NEGATIVE (Negative); URINE LEUKOCYTES-REFLEX 1+ (Negative); URINE PROTEIN (DIPSTICK) NEGATIVE (Negative); URINE UROBILINOGEN 0.2 E.U./dl (0.2-1.0)
[2016-08-18 23:06] LABS: CASTS None Seen /LPF (None Seen); CRYSTALS None Seen /LPF (None Seen); SQUAMOUS None Seen /LPF (0-3); URINE RBC None Seen /HPF (0-2); URINE WBC-REFLEX 0-5 Rare /HPF (0-5)
[2016-08-19 03:25] VITALS: BP 142/56
[2016-08-19 06:28] LABS: HEMATOCRIT 32.3 % (37.0-47.0); HEMOGLOBIN 10.8 gm/dL (12.0-15.0); MCH 30.9 pg (26.0-34.0); MCHC 33.6 g/dL (28.0-37.0); MCV 92.1 fL (80.0-100.0); PLATELET COUNT 202 thou/uL (150-400); RDW 13.6 % (10.5-14.5); WBC 9.2 thou/uL (4.0-11.0)
[2016-08-19 06:37] LABS: ALBUMIN 2.4 g/dL (3.4-5.0); CREATININE 0.9 mg/dL (0.6-1.0); TOTAL BILIRUBIN 0.6 mg/dL (<0.1-1.0); TOTAL PROTEIN 4.4 g/dL (6.4-8.2)
[2016-08-19 06:44] LABS: POTASSIUM 5.2 mmol/L (3.5-5.1)
[2016-08-19 06:58] LABS: MANUAL DIFF YES
[2016-08-19 07:45] LABS: ABSOLUTE NEUTROPHILS 7.7 thou/uL (1.4-8.2); TOTAL CELL COUNT 100
[2016-08-19 07:46] LABS: ANISOCYTOSIS SLIGHT
[2016-08-19 08:00] VITALS: BP 135/55
[2016-08-19 16:00] VITALS: BP 141/47
[2016-08-19 20:20] VITALS: BP 133/67
[2016-08-20 05:10] VITALS: BP 134/69
[2016-08-20 06:04] LABS: ALBUMIN 2.3 g/dL (3.4-5.0); CALCIUM 9.1 mg/dL (8.5-10.1); CREATININE 0.7 mg/dL (0.6-1.0)
[2016-08-20 06:05] LABS: POTASSIUM 4.2 mmol/L (3.5-5.1)
[2016-08-20 08:00] VITALS: BP 176/78
[2016-08-20 16:00] VITALS: BP 143/57
[2016-08-20 19:55] VITALS: BP 141/46
[2016-08-21 04:05] LABS: AMYLASE 201 U/L (25-115)
[2016-08-21 05:35] VITALS: BP 102/39
[2016-08-21 08:29] VITALS: BP 128/53
[2016-08-21 14:21] VITALS: BP 123/53
[2016-08-21 16:30] VITALS: BP 146/70
[2016-08-21 19:48] VITALS: BP 145/50
[2016-08-22 05:08] VITALS: BP 152/64
[2016-08-22 08:00] VITALS: BP 160/79
[2016-08-22 11:28] LABS: HEMATOCRIT 30.5 % (37.0-47.0); HEMOGLOBIN 10.4 gm/dL (12.0-15.0); MCH 31.6 pg (26.0-34.0); MCHC 34.1 g/dL (28.0-37.0); MCV 92.8 fL (80.0-100.0); RBC 3.28 mil/uL (4.20-5.00); RDW 13.6 % (10.5-14.5); WBC 10.3 thou/uL (4.0-11.0)
[2016-08-22 11:40] LABS: ALBUMIN 2.3 g/dL (3.4-5.0); POTASSIUM 3.7 mmol/L (3.5-5.1); TOTAL BILIRUBIN 0.3 mg/dL (<0.1-1.0); TOTAL PROTEIN 4.7 g/dL (6.4-8.2)
[2016-08-22 15:45] VITALS: BP 123/48
[2016-08-22 21:00] VITALS: BP 151/48
[2016-08-23 05:08] VITALS: BP 111/57
[2016-08-23 09:07] VITALS: BP 158/40
[2016-08-23 17:26] VITALS: BP 142/47
[2016-08-23 20:30] VITALS: BP 148/68
[2016-08-24 04:14] VITALS: BP 143/69
[2016-08-24 07:39] VITALS: BP 165/71
[2016-08-24 16:41] VITALS: BP 148/72
[2016-08-24 19:59] VITALS: BP 144/58
[2016-08-25] VITALS (34 sets, daily range): BP systolic 109–179; BP diastolic 42–83
[2016-08-25 05:23] LABS: HEMATOCRIT 31.7 % (37.0-47.0); HEMOGLOBIN 10.7 gm/dL (12.0-15.0); MCH 31.5 pg (26.0-34.0); MCHC 33.9 g/dL (28.0-37.0); PLATELET COUNT 281 thou/uL (150-400); RBC 3.41 mil/uL (4.20-5.00); RDW 13.5 % (10.5-14.5); WBC 8.6 thou/uL (4.0-11.0)
[2016-08-25 05:26] LABS: MANUAL DIFF YES
[2016-08-25 05:45] LABS: ALBUMIN 2.3 g/dL (3.4-5.0); CALCIUM 9.4 mg/dL (8.5-10.1); CREATININE 0.7 mg/dL (0.6-1.0); POTASSIUM 4.3 mmol/L (3.5-5.1); TOTAL BILIRUBIN 0.3 mg/dL (<0.1-1.0); TOTAL PROTEIN 5.1 g/dL (6.4-8.2)
[2016-08-25 07:17] LABS: ABG SAMPLE TYPE ARTERIAL; BE(vivo) 3.4 mmol/L (-2 to +3); HCO3 24.3 mmol/L (22.0-26.0); LACTATE 1.29 mmol/L (0.5-2.0); O2(CT) 15.6 mL/dL (15.0-23.0); O2Hb 97.8 % (92.0-98.0); PCO2 25.7 mmHg (35.0-45.0); PO2 128.9 mmHg (80.0-100.0); STICK SITE R.BRACHIAL; pH 7.593 (7.360-7.450); tCO2 25.1 mmol/L (24.0-30.0)
[2016-08-25 07:41] LABS: ABSOLUTE NEUTROPHILS 7.7 thou/uL (1.4-8.2); ANISOCYTOSIS SLIGHT; ATYPICAL LYMPHS 1 %; POIKILOCYTOSIS SLIGHT; TOTAL CELL COUNT 100
[2016-08-26] VITALS (34 sets, daily range): BP systolic 119–166; BP diastolic 41–88
[2016-08-26 05:14] LABS: HEMATOCRIT 30.8 % (37.0-47.0); HEMOGLOBIN 10.1 gm/dL (12.0-15.0); MCH 30.5 pg (26.0-34.0); MCHC 32.8 g/dL (28.0-37.0); MCV 92.7 fL (80.0-100.0); PLATELET COUNT 262 thou/uL (150-400); RBC 3.32 mil/uL (4.20-5.00); RDW 13.6 % (10.5-14.5); WBC 14.5 thou/uL (4.0-11.0)
[2016-08-26 05:21] LABS: MANUAL DIFF YES
[2016-08-26 05:45] LABS: CALCIUM 8.9 mg/dL (8.5-10.1); CREATININE 0.9 mg/dL (0.6-1.0); POTASSIUM 4.4 mmol/L (3.5-5.1)
[2016-08-26 07:49] LABS: ABSOLUTE NEUTROPHILS 13.5 thou/uL (1.4-8.2); HYPOCHROMASIA 1+; MYELOCYTES 1 %; POLYCHROMASIA OCCASIONAL; TOTAL CELL COUNT 100
[2016-08-26 07:50] LABS: ANISOCYTOSIS SLIGHT
[2016-08-27 05:34] VITALS: BP 147/67
[2016-08-27 08:20] VITALS: BP 152/74
[2016-08-27] MEDS ORDERED: PERCOCET 7.5-31 EACH PO (11:37)
[2016-08-27] MEDS ORDERED: AMBIEN 10 MG TA10 MG PO (11:37)
[2016-08-27] MEDS ORDERED: FLONASE 0.05%50 MCG NASAL (11:58)
== END 2016-08-27 16:45 | DRG 853 ==
LOC: ER 10:28 → EROBS 12:44 → 4S 12:44 → ICU 08-25 10:06 → 4S 08-26 17:01
PROVIDERS: Emergency Medicine; Family Medicine; Hospitalist; Internal Medicine Pulmonary Disease; Specialist; Surgery
PROC: 0DBM8ZX Excision of Descending Colon, Via Natural or Artificial Opening Endoscopic, Diagnostic (ICD-10-PCS; 2016-08-24)
PROC: 0DB68ZX Excision of Stomach, Via Natural or Artificial Opening Endoscopic, Diagnostic (ICD-10-PCS; 2016-08-24)
PROC: 0FT44ZZ Resection of Gallbladder, Percutaneous Endoscopic Approach (ICD-10-PCS; principal; 2016-08-25)
PROC: BF121ZZ Fluoroscopy of Gallbladder using Low Osmolar Contrast (ICD-10-PCS; principal; 2016-08-25)
DX: A41.9 Sepsis, unspecified organism (principal); K85.10 Biliary acute pancreatitis without necrosis or infection; K80.10 Calculus of gallbladder with chronic cholecystitis without obstruction; L03.113 Cellulitis of right upper limb; N39.0 Urinary tract infection, site not specified; J96.11 Chronic respiratory failure with hypoxia; I13.0 Hypertensive heart and chronic kidney disease with heart failure and stage 1 through stage 4 chronic kidney disease, or unspecified chronic kidney disease; E78.5 Hyperlipidemia, unspecified; E11.40 Type 2 diabetes mellitus with diabetic neuropathy, unspecified; E11.22 Type 2 diabetes mellitus with diabetic chronic kidney disease; N18.3 Chronic kidney disease, stage 3 (moderate); I50.9 Heart failure, unspecified; K52.9 Noninfective gastroenteritis and colitis, unspecified; K59.00 Constipation, unspecified; E66.9 Obesity, unspecified; J44.9 Chronic obstructive pulmonary disease, unspecified; M32.9 Systemic lupus erythematosus, unspecified; J84.10 Pulmonary fibrosis, unspecified; Z88.2 Allergy status to sulfonamides; Z68.29 Body mass index [BMI] 29.0-29.9, adult; Z79.82 Long term (current) use of aspirin; Z79.899 Other long term (current) drug therapy; Z98.49 Cataract extraction status, unspecified eye; Z88.8 Allergy status to other drugs, medicaments and biological substances; Z99.81 Dependence on supplemental oxygen
CPT/HCPCS: 10195; 10196; 50010; 50101; 50249; 50411; 50555; 50900; 50962; 51489; 51975; 52265; 52266; 52287; 53307; 53314; 54022; 55245; 55317; 56462; 56525; 56526; 56531; 62110; 62900; 70005

== ENCOUNTER → 2016-10-27 | Outpatient (CLI) | payer OTHER ==
[~2016-10-27] MED LIST changes: +AMBIEN 10 MG TA10 MG PO; +FLONASE 0.05%50 MCG NASAL
== END ==
LOC: RAD 15:11
DX: J44.9 Chronic obstructive pulmonary disease, unspecified (principal); J98.11 Atelectasis

== ENCOUNTER 2017-03-08 15:36 | Inpatient (IN) | payer OTHER ==
[~2017-03-08] VITALS: Ht 154.9 cm; Wt 84.6 kg
--- NOTE | ~2017-03-08 | EKG ---
[address] [address] ELECTROCARDIOGRAM REPORT Name: APARNA BOWIECYNTHIA BANG Room #: 215-P ADM IN M.R.#: [id number] Admission: 03/08/17 Attend Phys: Jerry Mcdowell MD Discharge: Date of : 34 Report #: [id number] THIS REPORT FOR: //name// [facility] Test Date: 2017-03-10 Test Time: 15:50:10 Pat Name: MAGALY BOWIE Department: Room: 215 P Gender: F Fox Farmer: Kiah FIGUEROA : 1935 Requested By: Jerry Mcdowell Order Number: [id number] MD: Jose Schofield Measurements Intervals [place] Rate: 132 P: 0 OK: 118 QRS: -31 QRSD: 124 T: 154 QT: 327 QTc: 485 Interpretive Statements Sinus tachycardia vs atrial flutter Left bundle branch block Electronically Signed On 03-10-2017 23:11:37 LOFTER by Jose Schofield [email or web address] <ELECTRONICALLY SIGNED> By: Jose Schofield MD 03/10/17 2311 1550 1550 Jose Schofield MD /TESSIE
--- NOTE | ~2017-03-08 | HC ---
[facility] [place] [address] CONSULTATION Name: MAGALY BOWIE Room #: 215-P ADM IN M.R.#: [id number] Admission: 03/08/17 Attend Phys: Jerry Mcdowell MD Discharge: Date of : 34 Report #: [id number] THIS REPORT FOR: //name// CC: CASSIE Mcdowell TYPE OF REPORT: Pulmonary consultation. PRIMARY CARE PHYSICIAN: Cassie Multani M.D. REFERRING PHYSICIAN: Jerry Mcdowell M.D. REASON FOR REFERRAL: Pneumonia. HISTORY OF PRESENT ILLNESS: The patient is an 81-year-old white female who presents to the Emergency Room with a productive cough, nausea and abdominal pain. Chest x-ray shows increasing right-sided infiltrates. Pulmonary consultation requested for possible pneumonia. The patient is known to this physician. She was last hospitalized in August of 2016 for abdominal pain. She has known interstitial lung disease. She was seen at [facility]. 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 She was seen by Dr. Adrian Chavira. She was doing fairly well until the last few days, though she felt constipated nauseated along with low-grade fever. She became dyspneic but a cough productive of mild purulent sputum. She was seen in the Emergency Room a few days ago. Chest x-ray shows mild increased interstitial markings. Today's x-ray shows increased right lower lobe infiltrates. PAST MEDICAL HISTORY: 1. 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 Diabetes mellitus type 2. 3. Hypertension. 4. Chronic kidney disease stage 3. 5. Dyslipidemia. 6. Neuropathy. PAST SURGICAL HISTORY: As mentioned above including cataract surgery. ALLERGIES: To CHONDROITIN, which causes severe rash; GLUCOSAMINE, causes severe rash and NABUMETONE, causes severe rash. [facility] [address] [place] [address] CONSULTATION Name: MAGALY BOWIE Room #: 215-P [facility] IN [facility]#: [id number] Admission: 03/08/17 Attend Phys: Jerry Mcdowell MD Discharge: Date of : 34 Report #: [id number] HOME MEDICATIONS: Include Combivent, prednisone 50 mg once a day, CellCept, Colace, Januvia, aspirin, Coreg, multivitamins, Zestril, Mevacor, Protonix and MiraLax. FAMILY HISTORY: Noncontributory. SOCIAL HISTORY: She denies any tobacco or alcohol use. REVIEW OF SYSTEMS: As mentioned above, otherwise, a 10-point system review negative. PHYSICAL EXAMINATION: GENERAL: She is awake, alert, in mild distress due to dyspnea. VITAL SIGNS: Temperature is 99.8 degrees Fahrenheit, pulse is 105, respiratory rate is 22, blood pressure 123/73 mmHg and saturation 98% on 2 liters of O2. HEENT: Normocephalic and atraumatic. NECK: Supple. No lymphadenopathy or thyromegaly. CHEST: Breath sounds are fair with bilateral crackles. No wheezes. CARDIOVASCULAR: Normal S1 and S2. There are no murmurs or gallop. There is no JVD. There is no carotid bruit. Pulses are 2+/4+ bilaterally. BREASTS: Exam is deferred. ABDOMEN: Soft and nontender. No organomegaly or masses felt. GENITOURINARY: Deferred. RECTAL: Deferred. EXTREMITIES: There is no edema, cyanosis or clubbing. RADIOLOGICAL DATA: Chest x-ray shows increased interstitial markings from baseline along with increasing right lower lobe infiltrates. CT abdomen and pelvis shows no acute abdominal or pelvic abnormalities, diffuse colonic diverticulosis. LABORATORY DATA: Electrolytes are normal. Liver enzymes are normal. Arterial blood gas revealed pH 7.36, pCO2 of 38 and pO2 117 on FiO2 35%. Hemoglobin is 8.8, WBC 8100 and platelets are normal. IMPRESSION: 1. Increasing dyspnea, low grade fever in this 81-year-old white female with history of lupus pneumonitis. The patient likely has pneumonia. We will need to consider community-acquired pneumonia in this immunocompromised patient. Question, we need to consider community acquired versus other pathogens given immunosuppressed state. 2. History of lupus pneumonitis, currently followed by Dr. Chavira at [facility]. 3. Ndswv-nf-mdzkrpc hypoxic respiratory failure. 4. Diabetes mellitus type 2. [address] [address] CONSULTATION Name: MAGALY BOWIE BETI Room #: 215-P [facility] IN M.R.#: [id number] Admission: 03/08/17 Attend Phys: Jerry Mcdowell MD Discharge: Date of : 34 Report #: [id number] 5. Hypertension, essential. 6. Chronic kidney disease, stage III. RECOMMENDATIONS: We would initiate broad-spectrum antibiotics to cover for community-acquired pneumonia, though patient needs to be followed closely for possible other pathogens such as opportunistic infection in this immunosuppressed patient. Wean O2 for saturation 90%. DVT and GI prophylaxis will be addressed. We will follow closely for possible exacerbation of her lupus pneumonitis. The patient may need pulse steroid therapy. Thank you for this consultation. <ELECTRONICALLY SIGNED> By: James Leiva MD 03/12/17 1747 1656 2033 James Leiva MD /nt
[2017-03-08 15:39] VITALS: BP 137/50
[2017-03-08 17:20] LABS: HEMOGLOBIN 9.4 gm/dL (12.0-15.0); MCH 30.3 pg (26.0-34.0); MCHC 33.4 g/dL (28.0-37.0); MCV 90.5 fL (80.0-100.0); PLATELET COUNT 182 thou/uL (150-400); RBC 3.09 mil/uL (4.20-5.00); RDW 15.6 % (10.5-14.5); WBC 7.6 thou/uL (4.0-11.0)
[2017-03-08 17:39] LABS: CALCIUM 8.6 mg/dL (8.5-10.1); CREATININE 1.1 mg/dL (0.6-1.0); POTASSIUM 3.1 mmol/L (3.5-5.1)
[2017-03-08 17:45] LABS: DIRECT BILIRUBIN 0.2 mg/dL (<0.1-0.3); TOTAL BILIRUBIN 0.7 mg/dL (<0.1-1.0)
[2017-03-08 17:55] LABS: ABSOLUTE NEUTROPHILS 5.9 thou/uL (1.4-8.2); ANISOCYTOSIS 1+; METAMYELOCYTES 1 %; POLYCHROMASIA OCCASIONAL
[2017-03-08 18:20] LABS: URINE BILIRUBIN NEGATIVE (Negative); URINE BLOOD TRACE (Negative); URINE CLARITY CLEAR; URINE COLOR YELLOW; URINE GLUCOSE-RANDOM* NEGATIVE (Negative); URINE KETONES NEGATIVE (Negative); URINE LEUKOCYTES NEGATIVE (Negative); URINE NITRITE NEGATIVE (Negative); URINE PROTEIN (DIPSTICK) NEGATIVE (Negative); URINE SPECIFIC GRAVITY <= 1.005 (1.005-1.035); URINE UROBILINOGEN 0.2 E.U./dl (0.2-1.0)
[2017-03-09 03:05] VITALS: BP 99/24
[2017-03-09 04:48] LABS: HEMATOCRIT 25.2 % (37.0-47.0); MCH 29.3 pg (26.0-34.0); MCHC 31.7 g/dL (28.0-37.0); MCV 92.3 fL (80.0-100.0); RBC 2.73 mil/uL (4.20-5.00); RDW 15.6 % (10.5-14.5); WBC 5.6 thou/uL (4.0-11.0)
[2017-03-09 04:57] LABS: CALCIUM 8.3 mg/dL (8.5-10.1); POTASSIUM 3.4 mmol/L (3.5-5.1)
[2017-03-09 15:17] VITALS: BP 134/60
[2017-03-09 15:30] VITALS: BP 137/68
[2017-03-09 20:05] VITALS: BP 147/65
[2017-03-10 05:07] VITALS: BP 158/82
[2017-03-10 07:30] VITALS: BP 170/77
[2017-03-10 10:55] LABS: ABSOLUTE NEUTROPHILS 6.4 thou/uL (1.4-8.2); EOSINOPHILS 1.2 % (0.0-3.0); HEMATOCRIT 27.7 % (37.0-47.0); LYMPHOCYTES 9.5 % (24.0-44.0); MCHC 32.3 g/dL (28.0-37.0); MCV 92.9 fL (80.0-100.0); MONOCYTES 10.8 % (1.0-8.0); PLATELET COUNT 181 thou/uL (150-400); POLYS 77.5 % (36.0-66.0); RBC 2.98 mil/uL (4.20-5.00); RDW 15.8 % (10.5-14.5); WBC 8.3 thou/uL (4.0-11.0)
[2017-03-10 10:59] LABS: CALCIUM 8.6 mg/dL (8.5-10.1); CREATININE 0.9 mg/dL (0.6-1.0); POTASSIUM 3.6 mmol/L (3.5-5.1)
[2017-03-10 11:30] VITALS: BP 167/74
[2017-03-10 15:35] VITALS: BP 146/77
[2017-03-10 15:38] LABS: BE(vivo) -4.6 mmol/L (-2 to +3); HCO3 23.8 mmol/L (22.0-26.0); PCO2 61.5 mmHg (35.0-45.0); PO2 62.8 mmHg (80.0-100.0); sO2 86.4 % (92.0-98.0)
[2017-03-10 15:39] LABS: pH 7.206 (7.360-7.450)
[2017-03-10 19:32] LABS: BE(vivo) -3.5 mmol/L (-2 to +3); HCO3 21.5 mmol/L (22.0-26.0); PCO2 38.4 mmHg (35.0-45.0); PO2 117.2 mmHg (80.0-100.0); pH 7.365 (7.360-7.450); sO2 98.2 % (92.0-98.0)
[2017-03-10 20:32] VITALS: BP 137/78
[2017-03-11 05:44] VITALS: BP 146/70
[2017-03-11 07:30] VITALS: BP 145/71
[2017-03-11 09:01] LABS: ABSOLUTE NEUTROPHILS 6.2 thou/uL (1.4-8.2); BASOPHILS 0.9 % (0.0-2.0); EOSINOPHILS 2.1 % (0.0-3.0); HEMATOCRIT 27.9 % (37.0-47.0); HEMOGLOBIN 8.8 gm/dL (12.0-15.0); LYMPHOCYTES 10.6 % (24.0-44.0); MCH 29.8 pg (26.0-34.0); MCHC 31.8 g/dL (28.0-37.0); MCV 93.9 fL (80.0-100.0); MONOCYTES 9.9 % (1.0-8.0); PLATELET COUNT 179 thou/uL (150-400); POLYS 76.5 % (36.0-66.0); RBC 2.97 mil/uL (4.20-5.00); RDW 15.7 % (10.5-14.5); WBC 8.1 thou/uL (4.0-11.0)
[2017-03-11 09:08] LABS: CALCIUM 8.8 mg/dL (8.5-10.1); CREATININE 1.1 mg/dL (0.6-1.0); POTASSIUM 3.6 mmol/L (3.5-5.1)
[2017-03-11 11:30] VITALS: BP 123/73
[2017-03-11 16:05] VITALS: BP 134/70
[2017-03-11 20:18] VITALS: BP 134/59
[2017-03-12 05:56] LABS: HEMATOCRIT 28.1 % (37.0-47.0); MCH 29.8 pg (26.0-34.0); MCHC 31.9 g/dL (28.0-37.0); MCV 93.3 fL (80.0-100.0); RBC 3.01 mil/uL (4.20-5.00); RDW 15.3 % (10.5-14.5); WBC 8.4 thou/uL (4.0-11.0)
[2017-03-12 06:02] LABS: CALCIUM 9.2 mg/dL (8.5-10.1); CREATININE 1.1 mg/dL (0.6-1.0); POTASSIUM 3.4 mmol/L (3.5-5.1)
[2017-03-12 07:50] VITALS: BP 142/62
[2017-03-12 12:10] VITALS: BP 130/63; BP 130/83; BP 141/51
[2017-03-12 15:55] VITALS: BP 131/57
[2017-03-12 19:45] VITALS: BP 125/58
[2017-03-13 04:40] VITALS: BP 139/70
[2017-03-13 05:13] LABS: CALCIUM 9.1 mg/dL (8.5-10.1); CREATININE 0.8 mg/dL (0.6-1.0); POTASSIUM 3.2 mmol/L (3.5-5.1)
[2017-03-13 08:05] VITALS: BP 120/52
[2017-03-13 11:45] VITALS: BP 136/63
[2017-03-13 16:20] VITALS: BP 126/48
[2017-03-13 19:37] VITALS: BP 116/54
[2017-03-14 04:32] VITALS: BP 141/71
[2017-03-14 08:30] VITALS: BP 117/48
[2017-03-14 11:45] VITALS: BP 135/63
[2017-03-14 15:30] VITALS: BP 123/47
[2017-03-14 20:43] VITALS: BP 126/68
[2017-03-15 03:56] LABS: CALCIUM 9.5 mg/dL (8.5-10.1); POTASSIUM 3.9 mmol/L (3.5-5.1)
[2017-03-15 04:19] LABS: HEMATOCRIT 26.2 % (37.0-47.0); HEMOGLOBIN 8.4 gm/dL (12.0-15.0); MCH 29.9 pg (26.0-34.0); MCV 93.7 fL (80.0-100.0); RBC 2.8 mil/uL (4.20-5.00); RDW 15.3 % (10.5-14.5); WBC 6.3 thou/uL (4.0-11.0)
[2017-03-15 05:34] VITALS: BP 141/67
[2017-03-15 08:00] VITALS: BP 134/72
[2017-03-15 11:50] VITALS: BP 130/69
[2017-03-15 16:10] VITALS: BP 123/68
[2017-03-15 20:20] VITALS: BP 122/62
[2017-03-16 03:58] LABS: CALCIUM 9.3 mg/dL (8.5-10.1); MAGNESIUM 1.6 mg/dL (1.8-2.4); POTASSIUM 4.3 mmol/L (3.5-5.1)
[2017-03-16 05:15] VITALS: BP 132/64
[2017-03-16 06:48] LABS: BE(vivo) 5.8 mmol/L (-2 to +3); HCO3 31.6 mmol/L (22.0-26.0); PCO2 53.3 mmHg (35.0-45.0); PO2 159.4 mmHg (80.0-100.0); pH 7.391 (7.360-7.450)
[2017-03-16 07:59] VITALS: BP 127/52
[2017-03-16 11:17] VITALS: BP 128/61
[2017-03-16 14:12] VITALS: BP 128/61
[2017-03-16 14:42] VITALS: BP 128/61
== END 2017-03-16 16:15 | disposition home health service (06) | DRG 177 ==
LOC: ER 15:36 → EROBS 20:39 → 2N 20:39 → EROBS 03-09 04:40 → 2N 03-09 15:11 → ENTRNSPT 03-16 15:46 → EDTRNSPTSTS 03-16 15:49 → 2N 03-16 16:15
PROVIDERS: Hospitalist; Internal Medicine Pulmonary Disease; Nurse Practitioner
PROC: 5A09357 Assistance with Respiratory Ventilation, Less than 24 Consecutive Hours, Continuous Positive Airway Pressure (ICD-10-PCS; principal; 2017-03-10)
DX: J15.6 Pneumonia due to other Gram-negative bacteria (principal); J96.21 Acute and chronic respiratory failure with hypoxia; J96.22 Acute and chronic respiratory failure with hypercapnia; I13.0 Hypertensive heart and chronic kidney disease with heart failure and stage 1 through stage 4 chronic kidney disease, or unspecified chronic kidney disease; N18.3 Chronic kidney disease, stage 3 (moderate); E11.40 Type 2 diabetes mellitus with diabetic neuropathy, unspecified; E78.5 Hyperlipidemia, unspecified; I50.9 Heart failure, unspecified; M32.9 Systemic lupus erythematosus, unspecified; E11.22 Type 2 diabetes mellitus with diabetic chronic kidney disease; Z79.899 Other long term (current) drug therapy; Z88.8 Allergy status to other drugs, medicaments and biological substances; Z98.49 Cataract extraction status, unspecified eye; Z90.49 Acquired absence of other specified parts of digestive tract; Z99.81 Dependence on supplemental oxygen
CPT/HCPCS: 10194

== ENCOUNTER 2017-03-18 16:08 | Inpatient (IN) | payer OTHER ==
[~2017-03-18] VITALS: Ht 154.9 cm; Wt 80.7 kg
--- NOTE | ~2017-03-18 | EKG ---
[address] [address] ELECTROCARDIOGRAM REPORT Name: MAGALY BOWIE Room #: 432-P ADM IN M.R.#: [id number] Admission: 03/18/17 Attend Phys: Kilo Salazra MD Discharge: Date of : 34 Report #: [id number] THIS REPORT FOR: //name// [facility] ED Test Date: 2017-03-18 Test Time: 18:12:21 Pat Name: MAGALY BOWIE Department: Room: 432 Gender: F Right Of Way Worker: PORFIRIO : 1935 Requested By: Dorcas Chaves Order Number: [id number] MD: Jose Schofield Measurements Intervals [place] Rate: 81 P: 18 OR: 169 QRS: -26 QRSD: 116 T: 160 QT: 417 QTc: 484 Interpretive Statements Sinus rhythm Incomplete left bundle branch block Consider anterior infarct Compared to ECG 03/10/2017 15:50:10 Myocardial infarct finding now present Sinus tachycardia no longer present Atrial flutter no longer present Electronically Signed On 03-18-2017 22:31:05 [employer]OP[employer] by Jose Schofield [email or web address] <ELECTRONICALLY SIGNED> By: Jose Schofield MD 03/18/17 2231 11 11 Jose Schofield MD /EPI
[2017-03-18 16:27] VITALS: BP 93/41
[2017-03-18 17:07] LABS: ABSOLUTE NEUTROPHILS 5.2 thou/uL (1.4-8.2); BASOPHILS 0.5 % (0.0-2.0); EOSINOPHILS 3.8 % (0.0-3.0); HEMATOCRIT 29.3 % (37.0-47.0); HEMOGLOBIN 9.3 gm/dL (12.0-15.0); LYMPHOCYTES 9.9 % (24.0-44.0); MCHC 31.8 g/dL (28.0-37.0); MCV 94.5 fL (80.0-100.0); MONOCYTES 11.5 % (1.0-8.0); PLATELET COUNT 179 thou/uL (150-400); POLYS 74.3 % (36.0-66.0); RDW 15.9 % (10.5-14.5)
[2017-03-18 17:16] LABS: CALCIUM 8.8 mg/dL (8.5-10.1); CREATININE 1.4 mg/dL (0.6-1.0); POTASSIUM 3.9 mmol/L (3.5-5.1)
[2017-03-18 17:25] LABS: ALBUMIN 2.7 g/dL (3.4-5.0); DIRECT BILIRUBIN 0.1 mg/dL (<0.1-0.3); TOTAL BILIRUBIN 0.3 mg/dL (<0.1-1.0); TOTAL PROTEIN 5.5 g/dL (6.4-8.2)
[2017-03-18 18:49] VITALS: BP 133/63
[2017-03-18 19:10] LABS: URINE BILIRUBIN NEGATIVE (Negative); URINE BLOOD NEGATIVE (Negative); URINE CLARITY CLEAR; URINE COLOR YELLOW; URINE GLUCOSE-RANDOM* NEGATIVE (Negative); URINE KETONES NEGATIVE (Negative); URINE LEUKOCYTES-REFLEX NEGATIVE (Negative); URINE NITRITE-REFLEX NEGATIVE (Negative); URINE PROTEIN (DIPSTICK) NEGATIVE (Negative); URINE SPECIFIC GRAVITY 1.015 (1.005-1.035); URINE UROBILINOGEN 0.2 E.U./dl (0.2-1.0)
[2017-03-18 20:12] VITALS: BP 119/64
[2017-03-18 20:14] VITALS: BP 134/64
[2017-03-19 00:03] VITALS: BP 133/70
[2017-03-19 04:19] VITALS: BP 119/63
[2017-03-19 05:58] LABS: HEMATOCRIT 28.4 % (37.0-47.0); MCHC 31.8 g/dL (28.0-37.0); MCV 94.6 fL (80.0-100.0); WBC 6.4 thou/uL (4.0-11.0)
[2017-03-19 06:09] LABS: CALCIUM 8.2 mg/dL (8.5-10.1); CREATININE 1.3 mg/dL (0.6-1.0); POTASSIUM 4.2 mmol/L (3.5-5.1)
[2017-03-19 07:25] VITALS: BP 140/70
[2017-03-19] MEDS ORDERED: LASIX 40 MG TAB40 M2 PO (12:26)
[2017-03-19] MEDS ORDERED: KLOR-CON 1010 MEQ PO (12:27)
[2017-03-19] MEDS ORDERED: GLIPIZIDE 10 MG10 MG PO (12:28)
[2017-03-19] MEDS ORDERED: PIOGLITAZONE15 MG (12:28)
[2017-03-19] MEDS ORDERED: XANAX 0.25 MG0.25 MG PO (12:29)
[2017-03-19 15:25] VITALS: BP 126/60
[2017-03-19 21:00] VITALS: BP 128/46
[2017-03-20 06:00] VITALS: BP 112/43
[2017-03-20 06:21] LABS: HEMATOCRIT 27.8 % (37.0-47.0); HEMOGLOBIN 8.8 gm/dL (12.0-15.0); MCH 29.7 pg (26.0-34.0); MCHC 31.4 g/dL (28.0-37.0); MCV 94.4 fL (80.0-100.0); RBC 2.95 mil/uL (4.20-5.00); RDW 15.4 % (10.5-14.5); WBC 4.5 thou/uL (4.0-11.0)
[2017-03-20 06:35] LABS: CALCIUM 8.2 mg/dL (8.5-10.1); CREATININE 1.2 mg/dL (0.6-1.0); POTASSIUM 4.3 mmol/L (3.5-5.1)
[2017-03-20 08:00] VITALS: BP 126/60
[2017-03-20 16:00] VITALS: BP 120/57
[2017-03-20 20:08] VITALS: BP 119/47
[2017-03-21 08:00] VITALS: BP 112/55
[2017-03-21 12:36] VITALS: BP 119/47
[2017-03-21] MEDS ORDERED: MEGESTROL40 MG/1 M1 PO (14:53)
[2017-03-21] MEDS ORDERED: METFORMIN HCL500 MG PO (14:54)
[2017-03-21 14:58] VITALS: BP 119/47
== END 2017-03-21 18:26 | disposition home health service (06) | DRG 637 ==
LOC: ER 16:08 → EROBS 18:08 → 4E 18:08 → ENTRNSPT 03-21 17:28 → 4E 03-21 18:26
PROVIDERS: Emergency Medicine; Hospitalist
DX: E11.649 Type 2 diabetes mellitus with hypoglycemia without coma (principal); E43 Unspecified severe protein-calorie malnutrition; I13.0 Hypertensive heart and chronic kidney disease with heart failure and stage 1 through stage 4 chronic kidney disease, or unspecified chronic kidney disease; N17.9 Acute kidney failure, unspecified; N18.3 Chronic kidney disease, stage 3 (moderate); E11.22 Type 2 diabetes mellitus with diabetic chronic kidney disease; E78.5 Hyperlipidemia, unspecified; I50.9 Heart failure, unspecified; E86.0 Dehydration; E11.42 Type 2 diabetes mellitus with diabetic polyneuropathy; T38.3X5A Adverse effect of insulin and oral hypoglycemic [antidiabetic] drugs, initial encounter; Z90.49 Acquired absence of other specified parts of digestive tract; Z68.33 Body mass index [BMI] 33.0-33.9, adult; Z79.84 Long term (current) use of oral hypoglycemic drugs; Z98.49 Cataract extraction status, unspecified eye; Z79.899 Other long term (current) drug therapy; Z88.8 Allergy status to other drugs, medicaments and biological substances; Y92.89 Other specified places as the place of occurrence of the external cause
CPT/HCPCS: 10183

== ENCOUNTER 2017-12-22 01:15 | Inpatient (IN) | payer OTHER ==
[2017-12-22] VITALS (7 sets, daily range): BP systolic 111–155; BP diastolic 56–77
[~2017-12-22] VITALS: Ht 154.9 cm; Wt 68.9 kg
[~2017-12-22 01:15] MED LIST changes: +KLOR-CON 1010 MEQ PO; +MEGESTROL40 MG/1 M1 PO; +METFORMIN HCL500 MG PO; +PIOGLITAZONE15 MG; +XANAX 0.25 MG0.25 MG PO
[2017-12-22 02:06] LABS: ABSOLUTE NEUTROPHILS 4.2 thou/uL (1.4-8.2); BASOPHILS 1.5 % (0.0-2.0); HEMATOCRIT 34.4 % (37.0-47.0); HEMOGLOBIN 11.6 gm/dL (12.0-15.0); LYMPHOCYTES 18.4 % (24.0-44.0); MCH 29.3 pg (26.0-34.0); MCHC 33.7 g/dL (28.0-37.0); MCV 86.9 fL (80.0-100.0); MONOCYTES 10.3 % (1.0-8.0); PLATELET COUNT 176 thou/uL (150-400); POLYS 65.8 % (36.0-66.0); RBC 3.96 mil/uL (4.20-5.00); RDW 12.2 % (10.5-14.5); WBC 6.4 thou/uL (4.0-11.0)
[2017-12-22 02:13] LABS: ANION GAP < 0 mmol/L (7-16); BUN 35 mg/dL (7-18); CHLORIDE 84 mmol/L (98-107); CO2 29 mmol/L (21-32); GLUCOSE 142 mg/dL (74-106); POTASSIUM 3.4 mmol/L (3.5-5.1)
[2017-12-22 02:15] LABS: SODIUM 112 mmol/L (136-145)
[2017-12-22 02:39] LABS: URINE BILIRUBIN NEGATIVE (Negative); URINE BLOOD 1+ (Negative); URINE CLARITY CLEAR; URINE COLOR YELLOW; URINE GLUCOSE-RANDOM* NEGATIVE (Negative); URINE KETONES NEGATIVE (Negative); URINE NITRITE-REFLEX NEGATIVE (Negative); URINE PROTEIN (DIPSTICK) NEGATIVE (Negative); URINE SPECIFIC GRAVITY <= 1.005 (1.005-1.035); URINE UROBILINOGEN 0.2 E.U./dl (0.2-1.0)
[2017-12-22 02:42] LABS: URINE LEUKOCYTES-REFLEX TRACE (Negative)
[2017-12-22 02:47] LABS: BACTERIA-REFLEX None Seen /HPF (None Seen); CASTS None Seen /LPF (None Seen); CRYSTALS None Seen /LPF (None Seen); MUCUS None Seen strn/LPF (None Seen); SQUAMOUS 0-3 Few /LPF (0-3); TRANSITIONAL EPITHEL CELL 0-3 Few /LPF (None Seen); URINE RBC None Seen /HPF (0-2); URINE WBC-REFLEX None Seen /HPF (0-5)
[2017-12-22 02:50] LABS: URINE CREATININE-RANDOM* 31.4 mg/dL
[2017-12-22] MEDS ORDERED: MELATONIN5 M1 PO (03:31)
[2017-12-22 07:47] LABS: MAGNESIUM 1.9 mg/dL (1.8-2.4)
[2017-12-23 04:39] VITALS: BP 144/51
[2017-12-23 07:26] LABS: HEMATOCRIT 30.5 % (37.0-47.0); HEMOGLOBIN 10.7 gm/dL (12.0-15.0); MCH 30.4 pg (26.0-34.0); MCHC 35.3 g/dL (28.0-37.0); MCV 86.2 fL (80.0-100.0); RBC 3.54 mil/uL (4.20-5.00); RDW 12.5 % (10.5-14.5); WBC 6.3 thou/uL (4.0-11.0)
[2017-12-23 07:36] LABS: CALCIUM 8.7 mg/dL (8.5-10.1); CREATININE 1.6 mg/dL (0.6-1.0)
[2017-12-23 08:25] VITALS: BP 154/70
[2017-12-23] MEDS ORDERED: KEFLEX500 M1 PO (11:44)
[2017-12-23] MEDS ORDERED: FLOMAX0.4 MG PO (11:44)
[2017-12-23 12:55] VITALS: BP 154/70
== END 2017-12-23 15:44 | disposition home or self-care (01) | DRG 682 ==
LOC: ER 01:15 → 4W 03:15 → EROBS 03:15 → 4W 04:13 → ENTRNSPT 12-23 15:43 → 4W 12-23 15:44
PROVIDERS: Hospitalist; Nurse Practitioner Acute Care; Student in an Organized Health Care Education/Training Program
DX: N17.9 Acute kidney failure, unspecified (principal); E43 Unspecified severe protein-calorie malnutrition; E87.1 Hypo-osmolality and hyponatremia; J96.11 Chronic respiratory failure with hypoxia; I13.0 Hypertensive heart and chronic kidney disease with heart failure and stage 1 through stage 4 chronic kidney disease, or unspecified chronic kidney disease; E78.5 Hyperlipidemia, unspecified; E11.40 Type 2 diabetes mellitus with diabetic neuropathy, unspecified; I50.9 Heart failure, unspecified; R33.9 Retention of urine, unspecified; E87.6 Hypokalemia; E11.22 Type 2 diabetes mellitus with diabetic chronic kidney disease; M62.84 Sarcopenia; N18.4 Chronic kidney disease, stage 4 (severe); K21.9 Gastro-esophageal reflux disease without esophagitis; Z60.2 Problems related to living alone; Z98.49 Cataract extraction status, unspecified eye; Z90.49 Acquired absence of other specified parts of digestive tract; Z88.8 Allergy status to other drugs, medicaments and biological substances; Z99.81 Dependence on supplemental oxygen
CPT/HCPCS: 10045

== ENCOUNTER 2018-01-16 06:19 | Inpatient (IN) | payer OTHER ==
[~2018-01-16] VITALS: Ht 154.9 cm; Wt 69.4 kg
[2018-01-16] VITALS (7 sets, daily range): BP systolic 106–158; BP diastolic 38–63
--- NOTE | ~2018-01-16 | EKG ---
[facility] [place] [place] [address] ELECTROCARDIOGRAM REPORT Name: MAGALY BOWIE Room #: REG SUZAN Ramirez#: [id number] Admission: 01/16/18 Attend Phys: Discharge: Date of : 34 Report #: [id number] THIS REPORT FOR: //name// [facility] ED Test Date: 2018-01-16 Test Time: 06:21:48 Pat Name: MAGALY BOWIE Department: Room: Gender: F Special Ed Assistant: Juli : 1935 Requested By: Jus Early Order Number: [id number] MD: Michi Travis Measurements Intervals [place] Rate: 76 P: 22 NV: 172 QRS: -35 QRSD: 113 T: 105 QT: 422 QTc: 475 Interpretive Statements Sinus rhythm LVH with IVCD and secondary repol abnrm Compared to ECG 03/18/2017 18:12:21 Intraventricular conduction delay now present Left ventricular hypertrophy now present Electronically Signed On 01-16-2018 8:13:35 ASSOCIATE PROFESSOR by Michi Travis [email or web address] <ELECTRONICALLY SIGNED> By: Michi Travis MD, [facility] 01/16/1813 0 0 Michi Travis MD, FAC /EPI
--- NOTE | ~2018-01-16 | 2DMMODE ---
[facility] [address] [place] [address] 2 D/M-MODE ECHOCARDIOGRAM Name: MAGALY BOWIE Room #: 209-P [facility] IN [facility].#: [id number] Admission: 01/16/18 Attend Phys: Jerry Mcdowell MD Discharge: Date of : 33 Date of Service: 01/16/18 1215 Report #: [id number] THIS REPORT FOR: //name// APPROVED REPORT Study performed: 01/16/2018 11:24:57 EXAM: Comprehensive 2D, Doppler, and color-flow Echocardiogram Patient Location: Bedside Room #: 209 Status: routine BSA: 1.69 HR: 70 bpm BP: 158/63 mmHg Rhythm: NSR Other Information Study Quality: Adequate Technically limited study due to body habitus/limited mobility. Indications Chest Pain Hx: CHF, HTN, HLP, DM 2D Dimensions IVSd: 10.62 (7-11mm) LVOT Diam: 20.42 (18-24mm) LVDd: 47.25 mm PWd: 10.96 (7-11mm) Ascending Ao: 31.09 (22-36mm) LVDs: 37.14 (25-40mm) Aortic Root: 31.29 mm Volumes Left Atrial Volume (Systole) Single Plane 4CH: 48.60 mL Single Plane 2CH: 50.58 mL LA ESV Index: 34.00 mL/m2 Aortic Valve AoV Peak Armin.: 1.22 m/s AO Peak Gr.: 5.95 mmHg LVOT Max P.87 mmHg LVOT Max V: 0.85 m/s RORO Vmax: 2.27 cm2 Mitral Valve E/A Ratio: 0.5 [facility] [address] [place] [address] 2 D/M-MODE ECHOCARDIOGRAM Name: MAGALY BOWIE Room #: 209-P [facility] IN [facility]#: [id number] Admission: 01/16/18 Attend Phys: Jerry Mcdowell MD Discharge: Date of : 34 Date of Service: 01/16/18 1215 Report #: [id number] MV Decel. Time: 256.43 ms MV E Max Armin.: 0.70 m/s MV A Armin.: 1.33 m/s MV PHT: 74.36 ms IVRT: 96.89 ms Pulmonary Valve PV Peak Armin.: 1.11 m/s PV Peak Gr.: 4.94 mmHg Tricuspid Valve TR Peak Armin.: 2.06 m/s RAP Estimate: 5.00 mmHg TR Peak Gr.: 16.98 mmHg PA Pressure: 22.00 mmHg Left Ventricle The left ventricle is normal size. There is normal left ventricular wall thickness. Left ventricular systolic function is mildly decreased. LVEF is 45%. Mild diastolic dysfunction is present (impaired relaxation pattern). Right Ventricle The right ventricle is normal size. The right ventricular systolic function is normal. Atria Left atrium is mildly dilated. A PFO is noted with color doppler. The right atrium size is normal. Aortic Valve The aortic valve is mildly calcified. Trace aortic regurgitation. There is no aortic valvular stenosis. Mitral Valve Moderate mitral annular calcification. Trace mitral regurgitation. No evidence of mitral valve stenosis. Tricuspid Valve The tricuspid valve is normal in structure. Trace to mild tricuspid regurgitation. Estimated PAP is 20-25mmHg. Pulmonic Valve Pulmonic valve is not well visualized. There is no pulmonic valvular regurgitation. Great Vessels The aortic root is normal in size. The ascending aorta is normal in [facility] [address] [place] [address] 2 D/M-MODE ECHOCARDIOGRAM Name: MAGALY BOWIE Room #: 209-P ADM IN ..#: [id number] Admission: 01/16/18 Attend Phys: Jerry Mcdowell MD Discharge: Date of : 34 Date of Service: 01/16/18 1215 Report #: [id number] size. IVC is normal in size and collapses >50% with inspiration. Pericardium There is no pericardial effusion. <Conclusion> Left ventricular systolic function is mildly decreased. LVEF is 45%. Mild diastolic dysfunction A PFO is noted with color doppler. The aortic valve is mildly calcified. Trace aortic regurgitation, no stenosis. Moderate mitral annular calcification. Trace mitral regurgitation. Trace to mild tricuspid regurgitation. Estimated pulmonary artery pressure of 20-25mmHg. There is no pericardial effusion. <ELECTRONICALLY SIGNED> By: Michi Travis MD, FACC 01/16/181214 14 14 Michi Travis MD, FACC /INF
--- NOTE | ~2018-01-16 | HC ---
[facility] [address] [place] [address] CONSULTATION Name: MAGALY BOWIE Room #: 209-P ADM IN ..#: [id number] Admission: 01/16/18 Attend Phys: Jerry Mcdowell MD Discharge: Date of : 34 Report #: [id number] THIS REPORT FOR: //name// CC: FAM unknown Jerry Mcdowell DATE OF SERVICE: 01/16/2018 REASON FOR CONSULTATION: Chronically elevated creatinine level. HISTORY OF PRESENT ILLNESS: This is an 82-year-old female who apparently lives alone at home. She came in early this morning through the Emergency Room with some mid chest pain. It actually resolved either just before or upon arrival in the Emergency Room. She has not had chest pain since that time. No palpitations. She has chronic dyspnea. She has chronic hypoxemia and wears 2 liters nasal cannula at home continuously. She carries a history of some interstitial lung disease. She is resting comfortably at this time. We are asked to see her at this time because of an elevated creatinine level. The patient's creatinine today is 2.2. Looking back her older records, she had normal creatinine levels generally prior 2017 and she had some elevated levels as high as 1.5, then she had some levels also back to normal, but over the past month has had levels at 1.6-2.2 here at [place]. I was able to find that the patient has actually seen one of my partners, Dr. Keenan, in the office as well as at another hospital. His records show that she had creatinine levels as high as 2.5. In 2017, that was all evaluated quite extensively. Amongst the findings at that time were that of a positive ANCA. During that evaluation with those findings, he had recommended doing a kidney biopsy for diagnostic purposes. The patient declined kidney biopsy. She has continued to decline that same biopsy. Nevertheless, he has continued to follow her in the office. Her most recent creatinine level there was 2.1. The patient tells me that she has not had recent edema. She was having trouble passing urine and felt she had some urinary retention. She was actually here in [facility] about 3 weeks ago. She describes both constipation and difficulty voiding urine. She had a Smiley catheter in at that time. She had some tamsulosin added to her regimen. She also has a history of some type 2 diabetes, some hypertension. She has longstanding interstitial lung disease. She is chronically on oxygen therapy for that. There is a question of prior lupus. She has had previous cholecystectomy. MEDICATIONS: Upon admission to the hospital here reveal tamsulosin 0.4 mg daily, fluticasone nasal spray, potassium 10 mEq daily, alprazolam, Combivent inhaler, furosemide 40 mg daily, lovastatin 20 mg daily, MiraLax daily on a p.r.n. basis, Fosamax 70 mg weekly, ranitidine 150 mg daily, diclofenac 100 mg daily, aspirin 81 mg daily, carvedilol 3.125 mg b.i.d., vitamin D 1000 units daily, pantoprazole [address] [address] CONSULTATION Name: MAGALY BOWIE Room #: 209-P [facility] IN M.R.#: [id number] Admission: 01/16/18 Attend Phys: Jerry Mcdowell MD Discharge: Date of : 34 Report #: [id number] ALLERGIES: LISTED TO CHONDROITIN, GLUCOSAMINE, RELAFEN, and she was told to stop metformin, although there does not appear to be a true allergy to that. FAMILY HISTORY: Noncontributory. SOCIAL HISTORY: The patient has been living alone. She lives in [place], [place]. She is a . REVIEW OF SYSTEMS: Appetite is poor. She says she is very picky in what she eats, still has some constipation, although it is not as bad as it was a couple of weeks ago, still think she is having trouble voiding urine. She denies edema. She has chronic dyspnea with any exertion. She wears the O2 at 2 liters all the time. She has some nonproductive cough. She had chest pain this morning. No palpitations. This is not a frequent happening with the chest pain. Unaware of fevers, chills or sweats. PHYSICAL EXAMINATION: GENERAL: Elderly-appearing female, awake and responsive, no acute distress at this time. VITAL SIGNS: Blood pressure 128/50, heart rate 72, temperature 98.8 degrees Fahrenheit and oxygen saturation 100% on 2 liters per nasal cannula. HEENT: Shows pupils are equal and reactive. Sclerae nonicteric. Oral mucosa is moist. NECK: Veins are not distended. Neck is supple. CHEST: Fairly clear bilaterally. HEART: Has a regular rate and rhythm. ABDOMEN: Has active bowel sounds, is soft, nontender at this time. EXTREMITIES: Show no peripheral edema. LABORATORY DATA: Sodium 128, potassium 4.7, chloride 94, bicarbonate 25, BUN 40, creatinine 2.2, glucose 158, calcium 9.4, magnesium 1.9, total protein 6.3, albumin 3.4. Troponin 0.09 and on repeat 0.34. White count 9.5, hemoglobin 11.6, hematocrit 33.3, platelets 219,000. No urinalysis done yet. ASSESSMENT: 1. Elevated creatinine consistent with chronic kidney disease stage 4. It has been elevated actually for most of the past year, workup previously as noted above showed an elevated ANCA level. The patient refused biopsy. The fact that this does not continue to worsen aggressively would support the fact that this is not severe ANCA-mediated glomerular disease as that would have already had a pulmonary course and she would be expected to be in full blown renal failure. That is not the case, suggesting that the ANCA titer was perhaps a false positive or a clinically insignificant value. Nevertheless, she still has an elevated creatinine level. I am curious whether some of this is due to her urinary voiding difficulties. She also is still on a bit of a nonsteroidal, [facility] [address] [place] [address] CONSULTATION Name: MAGALY BOWIE Room #: 209-P ADM IN .R.#: [id number] Admission: 01/16/18 Attend Phys: Jerry Mcdowell MD Discharge: Date of : 34 Report #: [id number] which could be stopped. Blood pressure is okay, volume is okay. We will recheck another urine sample just to make sure she did not have fulminant proteinuria or hematuria. 2. Chest pain. Troponin level increased very slightly. Cardiology is seeing her. 3. Hypertension, currently controlled. 4. Chronic pulmonary fibrosis on oxygen with good oxygenation levels. 5. Otherwise, as noted above. PLAN: 1. Recheck urine studies. 2. Dr. Keenan will be seeing her tomorrow to follow up after his office visits and previous knowledge of her status. 3. We will follow along in her care. By: 1741 0211 Dom Luque MD /nt
[~2018-01-16 06:19] MED LIST changes: +FLOMAX0.4 MG PO; +KEFLEX500 M1 PO; +MELATONIN5 M1 PO
[2018-01-16] MEDS ORDERED: FOSAMAX 70 MG T70 MG PO (06:30)
[2018-01-16] MEDS ORDERED: PROBIOTIC1 EAC1 PO ×2 (06:35→06:42)
[2018-01-16] MEDS ORDERED: IPRAT-ALBUT 0.5-3 ML (06:39)
[2018-01-16] MEDS ORDERED: ENZYME DIGEST1 EACH PO (06:42)
[2018-01-16] MEDS ORDERED: ZANTAC 150MG T150 MG PO (06:44)
[2018-01-16] MEDS ORDERED: VOLTAREN100 GM (06:45)
[2018-01-16] MEDS ORDERED: NYSTATIN15 G3 TOP (06:45)
[2018-01-16 06:49] LABS: ABSOLUTE NEUTROPHILS 6.9 thou/uL (1.4-8.2); BASOPHILS 0.4 % (0.0-2.0); HEMATOCRIT 33.3 % (37.0-47.0); HEMOGLOBIN 11.6 gm/dL (12.0-15.0); LYMPHOCYTES 16.8 % (24.0-44.0); MCH 30.2 pg (26.0-34.0); MCHC 34.8 g/dL (28.0-37.0); MCV 86.8 fL (80.0-100.0); MONOCYTES 8.9 % (1.0-8.0); PLATELET COUNT 219 thou/uL (150-400); POLYS 72.9 % (36.0-66.0); RBC 3.83 mil/uL (4.20-5.00); RDW 13.2 % (10.5-14.5); WBC 9.5 thou/uL (4.0-11.0)
[2018-01-16 06:54] LABS: CALCIUM 9.4 mg/dL (8.5-10.1); CREATININE 2.2 mg/dL (0.6-1.0); POTASSIUM 4.7 mmol/L (3.5-5.1)
[2018-01-16 07:00] LABS: APTT 21.9 Seconds (24.5-32.8); PROTIME 10.3 Seconds (9.3-11.4)
[2018-01-16 07:03] LABS: ALBUMIN 3.4 g/dL (3.4-5.0); MAGNESIUM 1.9 mg/dL (1.8-2.4); TOTAL BILIRUBIN 0.6 mg/dL (<0.1-1.0); TOTAL PROTEIN 6.3 g/dL (6.4-8.2); TROPONIN-I 0.09 ng/mL (<0.06)
[2018-01-16 18:56] LABS: URINE BILIRUBIN NEGATIVE (Negative); URINE BLOOD 3+ (Negative); URINE CLARITY CLEAR; URINE COLOR YELLOW; URINE GLUCOSE-RANDOM* NEGATIVE (Negative); URINE KETONES NEGATIVE (Negative); URINE LEUKOCYTES TRACE (Negative); URINE NITRITE NEGATIVE (Negative); URINE PROTEIN (DIPSTICK) NEGATIVE (Negative); URINE SPECIFIC GRAVITY <= 1.005 (1.005-1.035); URINE UROBILINOGEN 0.2 E.U./dl (0.2-1.0)
[2018-01-16 19:01] LABS: PROT/CREAT RATIO 0.3; URINE CREATININE-RANDOM* 50.1 mg/dL; URINE PROTEIN-RANDOM* 14.5 mg/dL (<11.9)
[2018-01-16 19:17] LABS: URINE RBC >20 Many /HPF (0-2)
[2018-01-16 19:18] LABS: BACTERIA 1-9 Few /HPF (None Seen); CASTS None Seen /LPF (None Seen); CRYSTALS None Seen /LPF (None Seen); SQUAMOUS 0-3 Few /LPF (0-3); URINE WBC None Seen /HPF (0-5)
[2018-01-17 03:12] VITALS: BP 137/55
[2018-01-17 03:38] LABS: HEMATOCRIT 32.3 % (37.0-47.0); HEMOGLOBIN 10.7 gm/dL (12.0-15.0); MCH 29.2 pg (26.0-34.0); MCHC 33.2 g/dL (28.0-37.0); MCV 88.1 fL (80.0-100.0); RBC 3.67 mil/uL (4.20-5.00); RDW 13.2 % (10.5-14.5); WBC 7.9 thou/uL (4.0-11.0)
[2018-01-17 03:49] LABS: CALCIUM 8.7 mg/dL (8.5-10.1); CREATININE 2.1 mg/dL (0.6-1.0)
[2018-01-17 07:55] VITALS: BP 147/64
[2018-01-17 11:35] VITALS: BP 143/48
[2018-01-17 12:16] VITALS: BP 148/64
[2018-01-17] MEDS ORDERED: IMDUR 30 MG TAB30 M1 PO (14:17)
== END 2018-01-17 16:38 | disposition home health service (06) | DRG 206 ==
LOC: ER 06:19 → EROBS 07:23 → 2N 07:23
PROVIDERS: Emergency Medicine; Hospitalist; Internal Medicine Nephrology
DX: M94.0 Chondrocostal junction syndrome [Tietze] (principal); I13.0 Hypertensive heart and chronic kidney disease with heart failure and stage 1 through stage 4 chronic kidney disease, or unspecified chronic kidney disease; E87.1 Hypo-osmolality and hyponatremia; N18.4 Chronic kidney disease, stage 4 (severe); N17.9 Acute kidney failure, unspecified; I25.10 Atherosclerotic heart disease of native coronary artery without angina pectoris; J44.9 Chronic obstructive pulmonary disease, unspecified; I50.9 Heart failure, unspecified; E11.22 Type 2 diabetes mellitus with diabetic chronic kidney disease; J84.10 Pulmonary fibrosis, unspecified; K59.00 Constipation, unspecified; M62.84 Sarcopenia; K21.9 Gastro-esophageal reflux disease without esophagitis; M81.0 Age-related osteoporosis without current pathological fracture; E78.5 Hyperlipidemia, unspecified; E11.40 Type 2 diabetes mellitus with diabetic neuropathy, unspecified; Z90.49 Acquired absence of other specified parts of digestive tract; Z99.81 Dependence on supplemental oxygen; Z79.51 Long term (current) use of inhaled steroids; Z79.82 Long term (current) use of aspirin; Z79.899 Other long term (current) drug therapy; Z88.8 Allergy status to other drugs, medicaments and biological substances
CPT/HCPCS: 10081; 10194

== ENCOUNTER 2018-01-30 02:15 | Inpatient (IN) | payer OTHER ==
[~2018-01-30] VITALS: Ht 154.9 cm; Wt 68.9 kg
[2018-01-30] VITALS (7 sets, daily range): BP systolic 124–148; BP diastolic 60–97
--- NOTE | ~2018-01-30 | 2DMMODE ---
[facility] [address] [place] [address] 2 D/M-MODE ECHOCARDIOGRAM Name: MAGALY BOWIE Room #: 215-P ADM IN ..#: [id number] Admission: 01/30/18 Attend Phys: Kilo Salazar MD Discharge: Date of : 34 Date of Service: 01/30/18 1335 Report #: [id number] THIS REPORT FOR: //name// APPROVED REPORT Study performed: 01/30/2018 11:10:44 EXAM: Comprehensive 2D, Doppler, and color-flow Echocardiogram Patient Location: In-Patient Room #: 215 Status: routine BSA: 1.68 HR: 84 bpm BP: 140/70 mmHg Rhythm: NSR Other Information Study Quality: Adequate Risk Factors: Cardiac Risk Factors: HTN, Hyperlipidemia, DM Indications Congestive Heart Failure COPD Chest Pain Hx [place] 2D Dimensions IVSd: 9.36 (7-11mm) LVOT Diam: 19.00 (18-24mm) LVDd: 39.61 mm PWd: 8.63 (7-11mm) Ascending Ao: 30.45 (22-36mm) LVDs: 35.16 (25-40mm) Aortic Root: 24.78 mm LV Single Plane 4CH: 38.40 % LV Single Plane 2CH: 35.00 % Biplane EF: 34.1 % Volumes Left Atrial Volume (Systole) Single Plane 4CH: 64.19 mL Single Plane 2CH: 40.85 mL LA ESV Index: 36.00 mL/m2 Aortic Valve [facility] [address] [place] [address] 2 D/M-MODE ECHOCARDIOGRAM Name: MAGALY BOWIE Room #: 215-P ADM IN M.R.#: [id number] Admission: 01/30/18 Attend Phys: Kilo Salazar MD Discharge: Date of : 34 Date of Service: 01/30/18 1335 Report #: [id number] AoV Peak Armin.: 1.37 m/s AO Peak Gr.: 7.52 mmHg LVOT Max P.78 mmHg LVOT Max V: 0.97 m/s RORO Vmax: 1.93 cm2 Mitral Valve E/A Ratio: 0.6 MV Decel. Time: 138.57 ms MV E Max Armin.: 0.87 m/s MV A Armin.: 1.56 m/s MV PHT: 40.19 ms IVRT: 69.20 ms TDI E/Lateral E': 17.40 E/Medial E': 29.00 Medial E' Armin.: 0.03 m/s Lateral E' Armin.: 0.05 m/s Pulmonary Valve PV Peak Armin.: 1.29 m/s PV Peak Gr.: 6.67 mmHg Tricuspid Valve TR Peak Armin.: 2.69 m/s RAP Estimate: 7.00 mmHg TR Peak Gr.: 29.03 mmHg PA Pressure: 36.00 mmHg Left Ventricle The left ventricle is normal size. There is normal left ventricular wall thickness. Left ventricular systolic function is moderately decreased. Hypokinesis of anterior wall, apex, and septum. LVEF is 35%. Grade I - abnormal relaxation pattern. Right Ventricle The right ventricle is normal size. The right ventricular systolic function is normal. Atria Left atrium is mildly dilated. The right atrium size is normal. Aortic Valve The aortic valve is mildly calcified. Trace aortic regurgitation. There is no aortic valvular stenosis. Mitral Valve Heavy mitral annular calcification. Calcified mitral leaflets. [facility] [address] [place] [address] 2 D/M-MODE ECHOCARDIOGRAM Name: MAGALY BOWIE Room #: 215-P [facility] IN .R.#: [id number] Admission: 01/30/18 Attend Phys: Kilo Salazar MD Discharge: Date of : 34 Date of Service: 01/30/18 1335 Report #: [id number] Moderate mitral regurgitation. No evidence of mitral valve stenosis. Tricuspid Valve The tricuspid valve is normal in structure. Trace tricuspid regurgitation. Pulmonary artery pressure is 36 mmHg. Pulmonic Valve The pulmonary valve is normal in structure. Trace pulmonic regurgitation. Great Vessels The aortic root is normal in size. IVC is normal in size and collapses >50% with inspiration. Pericardium There is no pericardial effusion. <Conclusion> Left ventricular systolic function is moderately decreased. Hypokinesis of anterior wall, apex, and septum. LVEF is 35%. Mild diastolic dysfunction Left atrium is mildly dilated. The aortic valve is mildly calcified. Trace aortic regurgitation, no stenosis Heavy mitral annular calcification. Calcified mitral leaflets. Moderate mitral regurgitation. Trace tricuspid regurgitation. Pulmonary artery pressure of 36 mmHg. There is no pericardial effusion. <ELECTRONICALLY SIGNED> By: Michi Travis MD, FACC 01/30/185 34 34 Michi Travis MD, FACC /INF
--- NOTE | ~2018-01-30 | EKG ---
[address] [place] [address] ELECTROCARDIOGRAM REPORT Name: MAGALY BOWIE Room #: 215-P ADM IN M.R.#: [id number] Admission: 01/30/18 Attend Phys: Kilo Salazar MD Discharge: Date of : 34 Report #: [id number] THIS REPORT FOR: //name// [facility] ED Test Date: 2018-01-30 Test Time: 02:24:45 Pat Name: MAGALY BOWIE Department: Room: 215 Gender: F Director Of Instruction: MAURICIO : 1935 Requested By: Jus Early Order Number: [id number] MD: Michi Travis Measurements Intervals [place] Rate: 96 P: 103 [place]: 184 QRS: -37 QRSD: 128 T: 155 QT: 381 QTc: 482 Interpretive Statements Sinus rhythm Left bundle branch block Compared to ECG 01/16/2018 06:21:48 Left bundle-branch block now present Electronically Signed On 01-30-2018 8:35:23 INSTRUCTIONAL ASSISTANT by Michi Travis [email or web address] <ELECTRONICALLY SIGNED> By: Michi Travis MD, [facility] 01/30/18 0835 D: 11223 3 Michi Travis MD, FACC /EPI
--- NOTE | ~2018-01-30 | EKG ---
[place] [address] [facility] [place] [address] ELECTROCARDIOGRAM REPORT Name: MAGALY BOWIE Room #: 215-P ADM IN M.R.#: [id number] Admission: 01/30/18 Attend Phys: Kilo Salazar MD Discharge: Date of : 34 Report #: [id number] THIS REPORT FOR: //name// [facility] Test Date: 2018-01-30 Test Time: 07:46:21 Pat Name: MAGALY BOWIE Department: Room: 215 P Gender: F Advertising Account Manager: JEANNETTE : 1935 Requested By: Jefry Callahan Order Number: [id number] MD: Michi Travis Measurements Intervals [place] Rate: 82 P: 18 [place]: 180 QRS: -36 QRSD: 113 T: 154 QT: 378 QTc: 442 Interpretive Statements Sinus rhythm Probable left atrial enlargement LVH with IVCD, LAD and secondary repol abnrm Compared to ECG 01/16/2018 06:21:48 No significant changes Electronically Signed On 01-30-2018 8:41:24 RETAIL SALES ASSOCIATE BILINGUAL by Michi Travis [email or web address] <ELECTRONICALLY SIGNED> By: Michi Travis MD, [facility] 1141 5 5 Michi Travis MD, [facility] /EPI
--- NOTE | ~2018-01-30 | CATHLAB ---
[facility] [address] [place] [address] INVASIVE PROCEDURE REPORT Name: MAGALY BOWIE Room #: 215-P ADM IN M.R.#: [id number] Admission: 01/30/18 Attend Phys: Kiah Barrios Discharge: Date of : 34 Date of Service: 01/31/18 1719 Report #: [id number] THIS REPORT FOR: //name// APPROVED REPORT Study performed: 01/31/2018 10:00:26 Patient Details Patient Status: In-Patient Room #: The patient is a 82 year-old female Event Personnel Jefry Callahan Shuffle Board Operator, Mary Ellen AstorgaR, Elizabeth Jackson Amber Monitor, Italo Newberry RN RN, Donald Castillo Supply Chain Specialist Procedures Performed Art Access - R femoral artery* Left Heart Cath w/or w/o Coronaries [id number] [facility] Renal Bilateral Peripheral Angiography [id number] CVRENALBIL 49076 Initial Mod Sed Same Phys/QHP Gr5y 025233 85463 Mod Sed Same Phys/QHP Ea 148090 [facility]ID[facility] Place w/wo Plasty Single RCA 588354 Indication Chest pain Procedure Narrative The Right Groin^ was infiltrated with 1% Lidocaine subcutaneous anesthesia. A LAUNCHER 6FR JR 4 #[id number] sheath was inserted into the RFA^. Coronary angiography was performed using coronary diagnostic catheters. The right coronary system was accessed and visualized with a JR4 catheter. The left coronary system was accessed and visualized with a JL4 catheter. The left ventricle was accessed and visualized with a PIGTAIL catheter. Left ventricular/Aortic Valve gradient assessed via catheter pullback. Closure device was deployed with a 6 Fr MYNXGRIP 6/7F #[id number]. The patient tolerated the procedure well and there were no complications associated with the procedure. There was no hematoma. Intraoperative Conscious Sedation Sedation start time: 10:49 Case end Time: 11:49 Fentanyl 25 mcg Versed 0.5 mg Fluoro Time: 9.54 minutes [facility] [address] [place] [address] INVASIVE PROCEDURE REPORT Name: MAGALY BOWIE Room #: 215-P [facility] IN ..#: [id number] Admission: 01/30/18 Attend Phys: Kiah Barrios Discharge: Date of : 34 Date of Service: 01/31/18 1719 Report #: [id number] Dose: DAP 7543.00 cGycm2 957 mGy Contrast Type and Amount: Visipaque 60 ml Hemodynamics The aortic pressure is 165/58 mmHg with a mean of 96 mmHg. The left ventricular pressure is 160/18 mmHg with a mean of mmHg. The left ventricular end diastolic pressure is 29 mmHg. PCI Technique Lesion Percutaneous coronary intervention was performed on the mid right coronary artery. A LAUNCHER 6FR JR 4 #[id number] Guide Catheter was used to engage the ostium. A Luge Wire .014 x 182CM #[id number] Interventional Guidewire was used to cross the lesion. BALLOON DILATION A Balloon catheter Sprinter OTW 2.25 x 12 #[id number] was inserted and inflated up to 18.00atm for 31seconds. Additional Inflation: 20.00atm for 47seconds. 3.5MM X 8MM Mozec NC balloon was inserted and inflated up to 16 junior for 31 seconds. Additional inflation: 20 junior for 26 seconds STENT DEPLOYMENT A drug-eluting stent XIENCE HEMANTH RX 3.5 X 12 #[id number] was inserted and inflated up to 18.00atm for 29seconds. POST STENT DEPLOYMENT BALLOON DILATION A Balloon catheter TREK NC OTW 3.75 X 12 #[id number] was inserted and inflated up to 18.00atm for 42seconds. Conclusion #1 successful PTCA stent of a mid dominant RCA lesion subtotaled is 0% with placement of a 3.5 x 12 Hemanth stent postdilated 3.9 mm in size (drug-eluting stent) large dominant vessel with preserved PDA CLAUDIA #2 left main distal tapered narrowing of 40% giving rise to an occluded LAD and a circumflex OM system #3 proximal LAD occluded collaterally filled briskly after the RCA was intervened on #4 circumflex OM with moderate disease moderate caliber large single OM branch Recommendations and plan: Continue aggressive risk factor modification dual antiplatelet therapy. Significant a temperature to limited contrast due to creatinine issue. Proximal he 60 mL of contrast utilized Hydration with sodium bicarbonate per renal instruction pre-and post [address] [address] INVASIVE PROCEDURE REPORT Name: MAGALY BOWIE Room #: 215-P [facility] IN M.R.#: [id number] Admission: 01/30/18 Attend Phys: Kiah Barrios Discharge: Date of : 34 Date of Service: 01/31/181718 Report #: [id number] procedure. Transfer to CCU to follow post coronary stent protocol. Dual antiplatelet therapy at least one year <ELECTRONICALLY SIGNED> By: Jefry Callahan MD, FACC 01/31/181718 18 18 Jefry Callahan MD, FACC /INF
--- NOTE | ~2018-01-30 | EKG ---
[place] [address] [facility] [place] [address] [place] [address] ELECTROCARDIOGRAM REPORT Name: MAGALY BOWIE Room #: 215-P ADM IN M.R.#: [id number] Admission: 01/30/18 Attend Phys: Won Cuevas MD Discharge: Date of : 34 Report #: [id number] THIS REPORT FOR: //name// [facility] Test Date: 2018-02-01 Test Time: 07:49:35 Pat Name: MAGALY BOWIE Department: Room: 215 P Gender: F Gunsmith Apprentice: JEANNETTE : 1935 Requested By: Renata Fulton Order Number: [id number] MD: Michi Travis Measurements Intervals [place] Rate: 68 P: 13 [place]: 210 QRS: -37 QRSD: 115 T: 179 QT: 455 QTc: 484 Interpretive Statements Sinus rhythm LVH with IVCD, LAD and secondary repol abnrm Compared to ECG 01/31/2018 07:02:10 No significant changes Electronically Signed On 02-01-2018 8:03:47 CELLOPHANE TESTER by Michi Travis [email or web address] <ELECTRONICALLY SIGNED> By: Michi Travis MD, [facility] 02/01/18 0803 0749 Michi Travis MD, [facility] /EPI
--- NOTE | ~2018-01-30 | EKG ---
[place] [address] [facility] [place] [address] ELECTROCARDIOGRAM REPORT Name: MAGALY BOWIE Room #: 215-P ADM IN M.R.#: [id number] Admission: 01/30/18 Attend Phys: Won Cuevas MD Discharge: Date of : 34 Report #: [id number] THIS REPORT FOR: //name// [facility] Test Date: 2018-01-31 Test Time: 07:02:10 Pat Name: MAGALY BOWIE Department: Room: 215 P Gender: F Clinical Admissions Manager: JEANNETTE : 1935 Requested By: Jefry Callahan Order Number: [id number] MD: Michi Travis Measurements Intervals [place] Rate: 70 P: 20 [place]: 177 QRS: -38 QRSD: 110 T: 177 QT: 446 QTc: 482 Interpretive Statements Sinus rhythm Abnormal R-wave progression, late transition LVH with IVCD, LAD and secondary repol abnrm Compared to ECG 01/30/2018 07:46:21 No significant changes Electronically Signed On 01-31-2018 8:59:18 BRIGHT CUTTER by Michi Travis [email or web address] <ELECTRONICALLY SIGNED> By: Michi Travis MD, [facility] 01/31/18 0859 0702 0702 Michi Travis MD, [facility] /EPI
[~2018-01-30 02:15] MED LIST changes: +ENZYME DIGEST1 EACH PO; +FOSAMAX 70 MG T70 MG PO; +IMDUR 30 MG TAB30 M1 PO; +IPRAT-ALBUT 0.5-3 ML; +NYSTATIN15 G3 TOP; +PROBIOTIC1 EAC1 PO; +VOLTAREN100 GM; +ZANTAC 150MG T150 MG PO
[2018-01-30] MEDS ORDERED: PROBIOTIC1 EAC1 PO (02:31)
[2018-01-30] MEDS ORDERED: REMERON15 MG PO (02:33)
[2018-01-30] MEDS ORDERED: GAS-X125 MG PO (02:34)
[2018-01-30] MEDS ORDERED: FOSAMAX 70 MG T70 MG PO (02:36)
[2018-01-30 02:37] LABS: ABSOLUTE NEUTROPHILS 6.6 thou/uL (1.4-8.2); BASOPHILS 0.7 % (0.0-2.0); EOSINOPHILS 1.3 % (0.0-3.0); HEMATOCRIT 34.1 % (37.0-47.0); HEMOGLOBIN 11.4 gm/dL (12.0-15.0); LYMPHOCYTES 16.2 % (24.0-44.0); MCH 29.8 pg (26.0-34.0); MCHC 33.6 g/dL (28.0-37.0); MCV 88.8 fL (80.0-100.0); MONOCYTES 7.2 % (1.0-8.0); PLATELET COUNT 215 thou/uL (150-400); POLYS 74.6 % (36.0-66.0); RBC 3.84 mil/uL (4.20-5.00); RDW 13.9 % (10.5-14.5); WBC 8.8 thou/uL (4.0-11.0)
[2018-01-30 02:45] LABS: CALCIUM 9.2 mg/dL (8.5-10.1); CREATININE 2.7 mg/dL (0.6-1.0); POTASSIUM 4.3 mmol/L (3.5-5.1)
[2018-01-30 02:53] LABS: ALBUMIN 3.2 g/dL (3.4-5.0); MAGNESIUM 1.8 mg/dL (1.8-2.4); TOTAL BILIRUBIN 0.5 mg/dL (<0.1-1.0); TOTAL PROTEIN 6.3 g/dL (6.4-8.2)
[2018-01-30 02:54] LABS: TROPONIN-I 2.22 ng/mL (<0.06)
[2018-01-30] MEDS ORDERED: ANALPRAM HC 128.4 GM (03:41)
[2018-01-30] MEDS ORDERED: CLOBETASOL EMOL15 GM (03:42)
[2018-01-30] MEDS ORDERED: BACTROBAN CREAM30 G1 (03:42)
[2018-01-30] MEDS ORDERED: ELIDEL CREAM 1%30 G1 (03:42)
[2018-01-30 05:26] LABS: APTT 30.1 Seconds (24.5-32.8); INR 1.1; PROTIME 11.4 Seconds (9.3-11.4)
[2018-01-30 06:45] LABS: HEMATOCRIT 32.3 % (37.0-47.0); HEMOGLOBIN 10.9 gm/dL (12.0-15.0); MCH 29.6 pg (26.0-34.0); MCHC 33.7 g/dL (28.0-37.0); MCV 87.7 fL (80.0-100.0); RBC 3.68 mil/uL (4.20-5.00); RDW 13.6 % (10.5-14.5); WBC 9.3 thou/uL (4.0-11.0)
[2018-01-31 04:33] LABS: HEMATOCRIT 30.1 % (37.0-47.0); HEMOGLOBIN 10.4 gm/dL (12.0-15.0); MCH 30.2 pg (26.0-34.0); MCHC 34.5 g/dL (28.0-37.0); MCV 87.7 fL (80.0-100.0); RBC 3.43 mil/uL (4.20-5.00); WBC 8.9 thou/uL (4.0-11.0)
[2018-01-31 04:48] LABS: ALBUMIN 2.8 g/dL (3.4-5.0); CALCIUM 8.6 mg/dL (8.5-10.1); CREATININE 2.5 mg/dL (0.6-1.0); PHOSPHORUS 3.5 mg/dL (2.5-4.9); POTASSIUM 4.3 mmol/L (3.5-5.1)
[2018-01-31 05:02] LABS: TROPONIN-I 7.99 ng/mL (<0.06)
[2018-01-31 06:17] VITALS: BP 140/65
[2018-01-31 08:32] VITALS: BP 133/55
[2018-01-31 12:15] VITALS: BP 128/58; BP 133/55
[2018-01-31 16:42] VITALS: BP 112/50
[2018-01-31 20:30] VITALS: BP 116/43
[2018-02-01 00:08] VITALS: BP 111/43
[2018-02-01 04:45] VITALS: BP 125/48
[2018-02-01 05:10] LABS: ABSOLUTE NEUTROPHILS 6.3 thou/uL (1.4-8.2); BASOPHILS 0.3 % (0.0-2.0); EOSINOPHILS 0.9 % (0.0-3.0); HEMATOCRIT 26.9 % (37.0-47.0); HEMOGLOBIN 9.2 gm/dL (12.0-15.0); LYMPHOCYTES 17.2 % (24.0-44.0); MCH 30.1 pg (26.0-34.0); MCHC 34.1 g/dL (28.0-37.0); MCV 88.1 fL (80.0-100.0); MONOCYTES 8.2 % (1.0-8.0); PLATELET COUNT 173 thou/uL (150-400); POLYS 73.4 % (36.0-66.0); RBC 3.06 mil/uL (4.20-5.00); RDW 13.7 % (10.5-14.5); WBC 8.6 thou/uL (4.0-11.0)
[2018-02-01 05:11] LABS: ALBUMIN 2.6 g/dL (3.4-5.0); CALCIUM 8.1 mg/dL (8.5-10.1); CREATININE 2.5 mg/dL (0.6-1.0); PHOSPHORUS 3.1 mg/dL (2.5-4.9); POTASSIUM 3.8 mmol/L (3.5-5.1)
[2018-02-01 07:38] VITALS: BP 139/59
[2018-02-01] MEDS ORDERED: COREG6.25 MG PO (08:17)
[2018-02-01] MEDS ORDERED: CLOPIDOGREL75 MG PO (08:17)
[2018-02-01] MEDS ORDERED: ATORVASTATIN CA40 MG PO (08:17)
[2018-02-01] MEDS ORDERED: ASPIRIN325 PO (08:18)
[2018-02-01 11:59] VITALS: BP 124/43
[2018-02-01 12:21] VITALS: BP 124/43
== END 2018-02-01 15:02 | disposition home health service (06) | DRG 246 ==
LOC: ER 02:15 → 2N 03:20 → EROBS 03:20 → 2N 05:50 → ENTRNSPT 02-01 14:08 → EDTRNSPTSTS 02-01 14:10 → 2N 02-01 15:02
PROVIDERS: Emergency Medicine; Family Medicine; Hospitalist; Nurse Practitioner Family
PROC: 4A023N7 Measurement of Cardiac Sampling and Pressure, Left Heart, Percutaneous Approach (ICD-10-PCS; principal; 2018-01-31)
PROC: 027034Z Dilation of Coronary Artery, One Artery with Drug-eluting Intraluminal Device, Percutaneous Approach (ICD-10-PCS; principal; 2018-01-31)
PROC: B2111ZZ Fluoroscopy of Multiple Coronary Arteries using Low Osmolar Contrast (ICD-10-PCS; principal; 2018-01-31)
DX: I21.4 Non-ST elevation (NSTEMI) myocardial infarction (principal); I50.33 Acute on chronic diastolic (congestive) heart failure; I13.0 Hypertensive heart and chronic kidney disease with heart failure and stage 1 through stage 4 chronic kidney disease, or unspecified chronic kidney disease; I42.9 Cardiomyopathy, unspecified; N18.4 Chronic kidney disease, stage 4 (severe); N17.9 Acute kidney failure, unspecified; K21.9 Gastro-esophageal reflux disease without esophagitis; E11.22 Type 2 diabetes mellitus with diabetic chronic kidney disease; I25.10 Atherosclerotic heart disease of native coronary artery without angina pectoris; I50.9 Heart failure, unspecified; J44.9 Chronic obstructive pulmonary disease, unspecified; D64.9 Anemia, unspecified; E11.40 Type 2 diabetes mellitus with diabetic neuropathy, unspecified; E78.5 Hyperlipidemia, unspecified; Z99.81 Dependence on supplemental oxygen; Z90.49 Acquired absence of other specified parts of digestive tract; Z79.51 Long term (current) use of inhaled steroids; Z79.82 Long term (current) use of aspirin; Z79.899 Other long term (current) drug therapy; Z88.8 Allergy status to other drugs, medicaments and biological substances
CPT/HCPCS: 10081

== ENCOUNTER 2018-02-11 01:57 | Inpatient (IN) | payer OTHER ==
[2018-02-11] VITALS (8 sets, daily range): BP systolic 125–169; BP diastolic 68–98
[~2018-02-11] VITALS: Ht 154.9 cm; Wt 78.6 kg
--- NOTE | ~2018-02-11 | 2DMMODE ---
[facility] [address] [place] [address] 2 D/M-MODE ECHOCARDIOGRAM Name: MAGALY BOWIE Room #: 216-P [facility] IN ..#: [id number] Admission: 02/11/18 Attend Phys: Kilo Salazar MD Discharge: Date of : 33 Date of Service: 02/12/18 0928 Report #: [id number] THIS REPORT FOR: //name// APPROVED REPORT Study performed: 02/11/2018 09:49:22 EXAM: Comprehensive 2D, Doppler, and color-flow Echocardiogram Patient Location: In-Patient Room #: 216 BSA: 1.76 HR: 86 bpm Rhythm: NSR Other Information Study Quality: Good Indications Chest Pain Echo Enhancing Agent Indication: CAD 2D Dimensions RVDd: 40.30 mm IVSd: 9.26 (7-11mm) LVOT Diam: 20.91 (18-24mm) LVDd: 48.29 mm PWd: 10.23 (7-11mm) Ascending Ao: 29.47 (22-36mm) LVDs: 37.48 (25-40mm) Left Atrium: 43.81 (27-40mm) Aortic Root: 34.30 mm LV Single Plane 4CH: 35.32 % LV Single Plane 2CH: 33.93 % Volumes Left Atrial Volume (Systole) Single Plane 4CH: 94.55 mL Single Plane 2CH: 72.51 mL Aortic Valve AoV Peak Armin.: 1.22 m/s AO Peak Gr.: 5.95 mmHg AO Mean Gr.: 3.19 mmHg AO V2 Mean: 0.84 m/s [facility] [address] [place] [address] 2 D/M-MODE ECHOCARDIOGRAM Name: MAGALY BOWIE Room #: 216-P [facility] IN ..#: [id number] Admission: 02/11/18 Attend Phys: Kilo Salazar MD Discharge: Date of : 33 Date of Service: 02/12/18 0928 Report #: [id number] AO V2 VTI: 25.20 cm AI Vmax: 2.71 m/s AI Castro: 1.47 m/s2 AI PHT: 534.43 ms Mitral Valve E/A Ratio: 0.9 MV Decel. Time: 153.06 ms MV E Max Armin.: 1.15 m/s MV A Armin.: 1.28 m/s MV PHT: 44.39 ms IVRT: 95.73 ms Pulmonary Valve PV Peak Armin.: 1.15 m/s PV Peak Gr.: 5.30 mmHg LA End Vmax: 1.69 m/s Pulmonary Vein P Vein S: 0.76 m/s P Vein A: 0.33 m/s P Vein D: 0.63 m/s P Vein A Dur.: 138.4 msec P Vein S/D Ratio: 1.21 Tricuspid Valve TR Peak Armin.: 3.68 m/s TR Peak Gr.: 54.24 mmHg Left Ventricle The left ventricle is normal size. There is normal left ventricular wall thickness. Left ventricular systolic function is moderately decreased. LVEF is 30-35%.worse ant septal galindo Right Ventricle The right ventricle is normal size. The right ventricular systolic function is normal. Atria Left atrium is mildly dilated. Aortic Valve The aortic valve is normal in structure. Trace to mild aortic regurgitation. There is no aortic valvular stenosis. Mitral Valve Moderate mitral annular calcification. Mild to moderate mitral regurgitation. There is normal mitral valve excursion. [facility] [address] [place] [address] 2 D/M-MODE ECHOCARDIOGRAM Name: MAGALY BOWIE Room #: 216-P ADM IN .R.#: [id number] Admission: 02/11/18 Attend Phys: Kilo Salazar MD Discharge: Date of : 33 Date of Service: 02/12/18 0928 Report #: [id number] Tricuspid Valve The tricuspid valve is normal in structure. Mild tricuspid regurgitation. Pulmonic Valve Trace to mild pulmonic regurgitation. Great Vessels The inferior vena cava is dilated with a decrease in inspiratory collapse. Pericardium There is no pericardial effusion. Critical Notification Critical Value: No <Conclusion> The left ventricle is normal size. Left ventricular systolic function is moderately decreased. LVEF is 30-35%.worse ant septal galindo The right ventricle is normal size. Left atrium is mildly dilated. Trace to mild aortic regurgitation. Mild to moderate mitral regurgitation. Mild tricuspid regurgitation. There is no pericardial effusion. <ELECTRONICALLY SIGNED> By: Jefry Callahan MD, FACC 02/12/18927 7 7 Jefry Callahan MD, FACC /INF
--- NOTE | ~2018-02-11 | EKG ---
[address] [address] ELECTROCARDIOGRAM REPORT Name: MAGALY BOWEI Room #: 216-P ADM IN M.R.#: [id number] Admission: 02/11/18 Attend Phys: Kilo Salazar MD Discharge: Date of : 34 Report #: [id number] THIS REPORT FOR: //name// [facility] Test Date: 2018-02-12 Test Time: 09:26:53 Pat Name: MAGALY BOWIE Department: Room: 216 P Gender: F Auto Parts Handler: SINCERE : 1935 Requested By: Francis Yuen Order Number: [id number] MD: Jose Schofield Measurements Intervals [place] Rate: 90 P: 75 UT: 185 QRS: -29 QRSD: 109 T: 154 QT: 358 QTc: 438 Interpretive Statements Sinus rhythm Abnormal R-wave progression, late transition LVH with secondary repolarization abnormality Compared to ECG 02/01/2018 07:49:35 Intraventricular conduction delay no longer present Electronically Signed On 02-12-2018 20:43:40 SHOVEL LOGGER by Jose Schofield [email or web address] <ELECTRONICALLY SIGNED> By: Jose Schofield MD 02/12/182042 5 5 Jose Schofield MD /TESSIE
--- NOTE | ~2018-02-11 | EKG ---
[address] [address] ELECTROCARDIOGRAM REPORT Name: MAGALY BOWIE Room #: 216-P ADM IN M.R.#: [id number] Admission: 02/11/18 Attend Phys: Kilo Salazar MD Discharge: Date of : 34 Report #: [id number] THIS REPORT FOR: //name// [facility] ED Test Date: 2018-02-11 Test Time: 02:08:27 Pat Name: MAGALY BOWIE Department: Room: 216 Gender: F Intellectual Property Counsel: nicolette : 1935 Requested By: Nasir Kothari Order Number: [id number] MD: Jose Schofield Measurements Intervals [place] Rate: 91 P: 95 [place]: 177 QRS: -32 QRSD: 111 T: 130 QT: 359 QTc: 442 Interpretive Statements Sinus rhythm Incomplete left bundle branch block LVH with secondary repolarization abnormality Anterior ST elevation, probably due to LVH Compared to ECG 02/01/2018 07:49:35 Left bundle-branch block now present ST (T wave) deviation now present Intraventricular conduction delay no longer present Electronically Signed On 02-12-2018 20:30:06 ORGANIZATIONAL EFFECTIVENESS CONSULTANT by Jose Schofield [email or web address] <ELECTRONICALLY SIGNED> By: Jose Schofield MD 02/12/18 2030 7 7 Jose Schofield MD /EPI
--- NOTE | ~2018-02-11 | HC ---
[facility] [address] [place] [address] CONSULTATION Name: MAGALY BOWIE Room #: 216-P [facility] IN M.R.#: [id number] Admission: 02/11/18 Attend Phys: Francis Yuen MD Discharge: 02/14/18 Date of : 33 Report #: [id number] THIS REPORT FOR: //name// CC: Kilo ARANGO unknown DATE OF SERVICE: 02/11/2018 ATTENDING PHYSICIAN: Dr. Salazar. REASON FOR CONSULTATION: Chronic kidney disease. HISTORY OF PRESENT ILLNESS: The patient is well known to our service, followed by Dr. Keenan in the office, baseline creatinine of 2-2.5 for some time now, has been thoroughly evaluated in the past, was recommended for renal biopsy, which she has refused several times. Last month she was admitted with what was felt to be ischemic coronary artery disease, initially refusing a stent, then had right coronary stent placed last admission, went home about a week ago, but was sent home apparently without diuretics, which she has chronically required. She became progressively short of breath, had some swelling and some orthopnea, and came back in the hospital with evidence of congestive heart failure, was admitted and now given IV Lasix. She is not having any chest pain. PAST MEDICAL HISTORY: She has COPD with interstitial lung disease, is on chronic oxygen 24/7 at home. She has a history of diabetes mellitus, congestive heart failure with ejection fraction of about 35%, recent heart catheterization with coronary stent as mentioned previously. She has had some history of urinary retention in the past as well. PAST SURGICAL HISTORY: Includes cholecystectomy. FAMILY HISTORY: No renal disease. SOCIAL HISTORY: She lives with a daughter. She gets around with her walker. REVIEW OF SYSTEMS: GENERAL: She has been weak, but just recently more short winded. EYES: Okay. ENT: Swallows okay. ENDOCRINE: Positive for the diabetes. RESPIRATORY: Easily short winded. CARDIAC: No chest pains or palpitations. GASTROINTESTINAL: Appetite is okay. GENITOURINARY: Currently denies any problem with urinary stream. She does have [facility] [address] [place] [address] CONSULTATION Name: MAGALY BOWIE Room #: 216-P [facility] IN M.R.#: [id number] Admission: 02/11/18 Attend Phys: Francis Yuen MD Discharge: 02/14/18 Date of : 33 Report #: [id number] a Smiley catheter in at this time. NEUROLOGIC: Generalized weakness, but no stroke. PHYSICAL EXAMINATION: GENERAL: This is a chronically ill-appearing elderly woman, but she is lucid and giving a reasonably good history. SKIN: Unremarkable. SKELETAL: Shows her to be somewhat overweight. HEENT: Extraocular movements are full. Vision is intact. Mucous membranes do not appear dry. NECK: Supple. CHEST: Shows some scanty crackles or rhonchi at the bases in the supine position, difficult examination at this time. HEART: Regular. ABDOMEN: Soft. EXTREMITIES: Show trace dependent edema. LABORATORY DATA: Includes hemoglobin of 9.1, creatinine of 2.3, BUN 57. ASSESSMENT AND PLAN: 1. Congestive heart failure. She is being appropriately diuresed. She needs some fluid off. 2. Chronic kidney disease. This is rather chronic, has been previously evaluated. Further workup at this time not necessary. Urinalysis does not indicate likely glomerular disease. 3. Ischemic cardiomyopathy with recent heart stent. 4. History of chronic obstructive pulmonary disease with interstitial lung disease. 5. Heart failure with reduced ejection fraction. <ELECTRONICALLY SIGNED> By: Jefry Banegas MD 02/15/18 1121 1028 1103 Jefry Banegas MD /nt
--- NOTE | ~2018-02-11 | HC ---
[facility] [place] [address] [place] [address] CONSULTATION Name: MAGALY BOWIE Room #: 216-P ADM IN M.R.#: [id number] Admission: 02/11/18 Attend Phys: Kilo Salazar MD Discharge: Date of : 34 Report #: [id number] THIS REPORT FOR: //name// CC: Kilo ARANGO unknown HISTORY OF PRESENT ILLNESS: The patient is an 82-year-old female known to myself. She had a non-STEMI last month and subsequently had a stent placed to her RCA on 01/30; stage 4 chronic kidney disease, hypertension, hypercholesterolemia. Ejection fraction mildly reduced in the 45% range. Has some progressive cough over the last couple of days. She could not sleep, increased edema, some mild orthopnea and PND. She had been not on a diuretic because of the kidney issues, but her LV function has not been that poor. She had been prescribed Levaquin at home and also uses a nebulizer. Subsequently, because of the shortness of breath, came to the hospital and was admitted last night. EKG is sinus rhythm with a left bundle. Her rates in the 80s today. The chest x-ray did show some bilateral infiltrates and vascular congestion. LABORATORY DATA: Creatinine 2.3, this is actually at her baseline. Potassium 5.7. Troponin 0.43 that is not significant, is more of a mismatch. No definite STEMI here. H and H are 9.1 and 27. White count 10.5. PAST MEDICAL HISTORY: Positive for coronary artery disease. Had a drug-eluting stent placed to the RCA of 3.5 x 12 Taylor, postdilated to 3.9 mm. This was a large, dominant vessel filling the PDA and CLAUDIA. EF was in the 35-45% range, cardiomyopathy, ischemic; hypertension, hypercholesterolemia, chronic kidney disease, diabetes, COPD, O2 dependent. SOCIAL HISTORY: She lives in [place] currently, did move in with her daughter since the stent placement. No current alcohol or tobacco. FAMILY HISTORY: Positive for premature coronary artery disease. MEDICATIONS: Have been Plavix, aspirin, albuterol, Levaquin, atorvastatin 40, olanzapine 2.5 at night, risperidone 0.5 at night, melatonin 5 mg at night, Pepcid 20 mg at night, lactobacillus, carvedilol 6.25 b.i.d., Protonix 40 a day. She was given Lasix last night. PHYSICAL EXAMINATION: GENERAL: She is alert. She is in no distress. In fact, she is on the commode. VITAL SIGNS: Blood pressure 140/60, pulse is 80s and regular. HEENT: Eyes reveal xanthelasmas. Pharynx is clear. NECK: Shows trace of JVD. Upstrokes are preserved. LUNGS: Prolonged expiratory phase. Diffuse crackles noted, diminished in the bases. CARDIOVASCULAR: Regular rate and rhythm. Distant S1 and S2, without significant murmur or gallop. [facility] [address] [place] [address] CONSULTATION Name: MAGALY BOWIE Room #: 216-P [facility] IN M.R.#: [id number] Admission: 02/11/18 Attend Phys: Kilo Salazar MD Discharge: Date of : 34 Report #: [id number] ABDOMEN: Soft. EXTREMITIES: Reveal 1-2+ edema. Distal pulses are diminished, but intact. NEUROLOGIC: Nonfocal. SKIN: Warm and dry. Venous stasis changes are noted. MUSCULOSKELETAL: Generalized arthritic changes. I did not ambulate her. ASSESSMENT: 1. Acute on chronic systolic heart failure. 2. Coronary artery disease with recent RCA stent placed drug-eluting to a large dominant RCA vessel. 3. Mild ischemic cardiomyopathy. 4. Hypertension. 5. Hypercholesterolemia. 6. Chronic obstructive pulmonary disease, O2 dependent. 7. Chronic kidney disease. RECOMMENDATIONS AND PLAN: We will initiate IV Lasix here. Her creatinine is less than her baseline. Hopefully, the potassium will correct itself. There is some mild hyperkalemia here. Nephrology is going to see the patient in addition. We will diurese, maybe, some dietary indiscretion in addition here. We will repeat her echo Doppler, although ejection fraction had improved post-procedure last month. We will follow with you. Thank you for asking me to assist in the care of this patient. Dual antiplatelet therapy will continue. She can reduce down to a baby aspirin now that we are few weeks out from stent placement with the clopidogrel indefinitely. By: [id number] Jefry Callahan MD, FACC /nt
--- NOTE | ~2018-02-11 | EKG ---
[address] [address] ELECTROCARDIOGRAM REPORT Name: MAGALY BOWIE Room #: 216-P ADM IN M.R.#: [id number] Admission: 02/11/18 Attend Phys: Kilo Salazar MD Discharge: Date of : 34 Report #: [id number] THIS REPORT FOR: //name// [facility] Test Date: 2018-02-11 Test Time: 17:25:33 Pat Name: MAGALY BOWIE Department: Room: 216 P Gender: F Burlapper: CARRILLO : 1935 Requested By: Francis Yuen Order Number: [id number] MD: Jose Schofield Measurements Intervals [place] Rate: 82 P: 30 [place]: 156 QRS: -32 QRSD: 106 T: 118 QT: 366 QTc: 428 Interpretive Statements Sinus rhythm Probable left atrial enlargement LVH with secondary repolarization abnormality Anterior Q waves, possibly due to LVH Compared to ECG 02/01/2018 07:49:35 Q waves now present Intraventricular conduction delay no longer present Electronically Signed On 02-12-2018 20:35:51 MEDIA ANALYTICS MANAGER by Jose Schofield [email or web address] <ELECTRONICALLY SIGNED> By: Jose Schofield MD 02/12/18 2035 24 24 Jose Schofield MD /EPI
[~2018-02-11 01:57] MED LIST changes: +ANALPRAM HC 128.4 GM; +ASPIRIN325 PO; +ATORVASTATIN CA40 MG PO; +BACTROBAN CREAM30 G1; +CLOBETASOL EMOL15 GM; +CLOPIDOGREL75 MG PO; +COREG6.25 MG PO; +ELIDEL CREAM 1%30 G1; +GAS-X125 MG PO; +REMERON15 MG PO
[2018-02-11 02:20] LABS: ABSOLUTE NEUTROPHILS 8.1 thou/uL (1.4-8.2); BASOPHILS 0.7 % (0.0-2.0); EOSINOPHILS 1.8 % (0.0-3.0); HEMATOCRIT 27.5 % (37.0-47.0); HEMOGLOBIN 9.1 gm/dL (12.0-15.0); LYMPHOCYTES 11.9 % (24.0-44.0); MCH 29.8 pg (26.0-34.0); MCV 90.3 fL (80.0-100.0); MONOCYTES 8.4 % (1.0-8.0); PLATELET COUNT 247 thou/uL (150-400); POLYS 77.2 % (36.0-66.0); RBC 3.04 mil/uL (4.20-5.00); RDW 15.7 % (10.5-14.5); WBC 10.5 thou/uL (4.0-11.0)
[2018-02-11 02:27] LABS: CALCIUM 8.8 mg/dL (8.5-10.1); CREATININE 2.3 mg/dL (0.6-1.0); POTASSIUM 5.7 mmol/L (3.5-5.1)
[2018-02-11 02:36] LABS: TROPONIN-I 0.43 ng/mL (<0.06)
[2018-02-11] MEDS ORDERED: OLANZAPINE2.5 MG PO (03:00)
[2018-02-11] MEDS ORDERED: CENTANY AT1 EACH TOP (03:01)
[2018-02-11] MEDS ORDERED: RISPERDAL0.25 MG PO (03:02)
[2018-02-11] MEDS ORDERED: LEVAQUIN 500 M500 M2 PO (03:02)
[2018-02-11 07:07] LABS: CHOLESTEROL 95 mg/dL (<200); HDL CHOLESTEROL 39 mg/dL (>40); LDL CHOLESTEROL 42 mg/dL (<100); TC:HDL 2.4 Ratio (Not establshd); TRIGLYCERIDE 70 mg/dL (<150); VLDL 14 mg/dL (<40)
[2018-02-12 00:03] VITALS: BP 150/63
[2018-02-12 00:05] LABS: GLYCOHEMOGLOBIN (HGB A1C) 6.4 % (4.8-5.6)
[2018-02-12 05:41] LABS: HEMATOCRIT 25.8 % (37.0-47.0); HEMOGLOBIN 8.6 gm/dL (12.0-15.0); MCH 29.7 pg (26.0-34.0); MCHC 33.3 g/dL (28.0-37.0); MCV 89.1 fL (80.0-100.0); RBC 2.9 mil/uL (4.20-5.00); RDW 15.5 % (10.5-14.5)
[2018-02-12 05:48] VITALS: BP 141/61
[2018-02-12 05:53] LABS: CALCIUM 8.6 mg/dL (8.5-10.1); CREATININE 2.7 mg/dL (0.6-1.0); POTASSIUM 4.6 mmol/L (3.5-5.1)
[2018-02-12 05:58] LABS: MAGNESIUM 1.5 mg/dL (1.8-2.4); TROPONIN-I 0.53 ng/mL (<0.06)
[2018-02-12 08:15] VITALS: BP 153/61
[2018-02-12 09:03] LABS: URINE BILIRUBIN NEGATIVE (Negative); URINE BLOOD 3+ (Negative); URINE CLARITY CLEAR; URINE COLOR YELLOW; URINE GLUCOSE-RANDOM* NEGATIVE (Negative); URINE KETONES NEGATIVE (Negative); URINE NITRITE-REFLEX NEGATIVE (Negative); URINE PROTEIN (DIPSTICK) NEGATIVE (Negative); URINE SPECIFIC GRAVITY 1.015 (1.005-1.035); URINE UROBILINOGEN 0.2 E.U./dl (0.2-1.0)
[2018-02-12 09:04] LABS: URINE LEUKOCYTES-REFLEX TRACE (Negative)
[2018-02-12 09:18] LABS: CASTS None Seen /LPF (None Seen); SQUAMOUS 0-3 Few /LPF (0-3)
[2018-02-12 09:19] LABS: BACTERIA-REFLEX 1-9 Few /HPF (None Seen); CRYSTALS None Seen /LPF (None Seen); URINE RBC 3-10 Few /HPF (0-2); URINE WBC-REFLEX 0-5 Rare /HPF (0-5)
[2018-02-12 12:00] VITALS: BP 134/48
[2018-02-12 15:45] VITALS: BP 143/52
[2018-02-12 19:55] VITALS: BP 147/59
[2018-02-13 00:25] VITALS: BP 140/57
[2018-02-13 02:41] LABS: ABSOLUTE NEUTROPHILS 6.5 thou/uL (1.4-8.2); BASOPHILS 0.4 % (0.0-2.0); EOSINOPHILS 1.8 % (0.0-3.0); HEMATOCRIT 26.2 % (37.0-47.0); HEMOGLOBIN 8.7 gm/dL (12.0-15.0); LYMPHOCYTES 13.1 % (24.0-44.0); MCH 29.4 pg (26.0-34.0); MCV 89.1 fL (80.0-100.0); MONOCYTES 9.1 % (1.0-8.0); PLATELET COUNT 187 thou/uL (150-400); POLYS 75.6 % (36.0-66.0); RBC 2.94 mil/uL (4.20-5.00); RDW 15.4 % (10.5-14.5); WBC 8.6 thou/uL (4.0-11.0)
[2018-02-13 04:45] VITALS: BP 148/61
[2018-02-13 08:01] VITALS: BP 165/64
[2018-02-13 08:18] LABS: ALBUMIN 2.7 g/dL (3.4-5.0); CALCIUM 8.4 mg/dL (8.5-10.1); PHOSPHORUS 4.1 mg/dL (2.5-4.9); POTASSIUM 4.4 mmol/L (3.5-5.1)
[2018-02-13 11:50] VITALS: BP 123/58
[2018-02-13 16:20] VITALS: BP 137/61
[2018-02-13 20:15] VITALS: BP 136/48
[2018-02-14 04:30] VITALS: BP 116/73
[2018-02-14 08:33] VITALS: BP 130/49
[2018-02-14 09:56] VITALS: BP 130/49
[2018-02-14 13:09] VITALS: BP 128/45
== END 2018-02-14 17:40 | disposition hospice, home (50) | DRG 291 ==
LOC: ER 01:57 → EROBS 03:21 → 2N 03:21 → ENTRNSPT 02-14 16:55 → 2N 02-14 17:40
PROVIDERS: Emergency Medicine; Internal Medicine; Nurse Practitioner Adult Health; Nurse Practitioner Family
DX: I13.0 Hypertensive heart and chronic kidney disease with heart failure and stage 1 through stage 4 chronic kidney disease, or unspecified chronic kidney disease (principal); I50.43 Acute on chronic combined systolic (congestive) and diastolic (congestive) heart failure; N17.9 Acute kidney failure, unspecified; J44.1 Chronic obstructive pulmonary disease with (acute) exacerbation; N18.4 Chronic kidney disease, stage 4 (severe); E11.22 Type 2 diabetes mellitus with diabetic chronic kidney disease; E78.5 Hyperlipidemia, unspecified; I25.5 Ischemic cardiomyopathy; I25.10 Atherosclerotic heart disease of native coronary artery without angina pectoris; E87.5 Hyperkalemia; K21.9 Gastro-esophageal reflux disease without esophagitis; E11.65 Type 2 diabetes mellitus with hyperglycemia; F03.90 Unspecified dementia, unspecified severity, without behavioral disturbance, psychotic disturbance, mood disturbance, and anxiety; M19.90 Unspecified osteoarthritis, unspecified site; M62.84 Sarcopenia; M81.0 Age-related osteoporosis without current pathological fracture; D63.8 Anemia in other chronic diseases classified elsewhere; E78.00 Pure hypercholesterolemia, unspecified; E11.40 Type 2 diabetes mellitus with diabetic neuropathy, unspecified; Z90.49 Acquired absence of other specified parts of digestive tract; Z99.81 Dependence on supplemental oxygen; I25.2 Old myocardial infarction; Z95.5 Presence of coronary angioplasty implant and graft; Z79.899 Other long term (current) drug therapy; Z88.8 Allergy status to other drugs, medicaments and biological substances; Z82.49 Family history of ischemic heart disease and other diseases of the circulatory system
CPT/HCPCS: 10081